=== PATIENT | female | born 1935 | race Caucasian/White ===

== ENCOUNTER → 2016-12-29 | Outpatient (CLI) | payer OTHER, MEDICARE ==
[~2016-12-29] MED LIST: ASPI81TA28 PO; CARV3.12 PO; CYAN100T PO; FERR325T51 PO; FURO-85 PO; HYDR-5688 PO; LEVO100T7 PO; LISI2.5T5 PO; METF500T PO; MULT-506 PO; ONDA4TAB10 SL; OPTIRAY 320 IV PRN; ROSU5TAB PO; SILO8CAP PO; SULF800T23 PO; TRAM-10 PO
--- NOTE | 2016-12-29 13:01 | DIAGNOSTIC IMAGING REPORT ---
CT OF THE CHEST WITH IV CONTRAST CLINICAL HISTORY: Lung adenocarcinoma. COMPARISON STUDY: Chest CT September 29, 2016 and PET/CT June 23, 2016. TECHNIQUE: Following IV administration of 70 mL of Optiray-320, helical axial images of the chest were obtained. Images were viewed in the axial, sagittal and coronal planes. IV contrast was administered without complication. CT DOSE: 160.10 mGycm FINDINGS: There are stable postoperative findings consistent with a left upper lobectomy. No enlarged axillary, mediastinal or hilar lymph nodes are present. The size of the heart is at the upper limits of normal. There is extensive coronary artery calcification. There is mild dilatation of the ascending aorta without dissection. There is extensive plaque of the great vessels. 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 No pericardial effusion is present. There is no pneumothorax or pleural effusion. A 1 cm groundglass nodule within the right lung apex shown on image 49 of 306 is unchanged since prior exam. This is at most minimally increased in size since a CT of December 28, 2013. A few additional smaller groundglass and solid right lung nodules are also unchanged. No new nodules are present. No suspicious osseous lesions are present. Sclerosis within a few left-sided ribs is likely postsurgical. Upper abdomen is unremarkable. There is mild emphysema. IMPRESSION: 1. Stable postoperative findings following left upper lobectomy. No change in appearance of the chest since prior exam September 29, 2016. 2. Stable 1 cm groundglass nodule within the right lung apex. A few additional groundglass and solid right lung nodules are also unchanged. No significant change since earlier study of December 28, 2013. A low-grade neoplasm remains within the differential and these can be assessed on subsequent studies. Electronically signed by: Enrike Romo M.D. 12/29/2016 12:59 PM Dictated Date/Time: 12/29/2016 12:42 PM
== END | disposition home or self-care (01) ==
LOC: C.CTS 12:13
PROVIDERS: ATTEND Internal Medicine Hematology & Oncology
DX: C34.12 Malignant neoplasm of upper lobe, left bronchus or lung (principal)

== ENCOUNTER → 2017-02-15 | Outpatient (CLI) | payer OTHER, MEDICARE ==
[~2017-02-15] MED LIST changes: +ACET-1256 PO; +ASPI325T39 PO; +CRAN1CAP16 PO; +CYAN10005 PO; +FURO20TA PO; +GARL10007 PO; -HYDR-5688 PO; +LOPE1TAB PO; -ONDA4TAB10 SL; -OPTIRAY 320 IV PRN; +[UNRECOGNIZED DRUG - CODE] PO
== END | disposition home or self-care (01) ==
LOC: C.LABSPEC 17:19
PROVIDERS: ATTEND Nurse Practitioner Family
DX: N39.0 Urinary tract infection, site not specified (principal)

== ENCOUNTER 2017-02-24 18:41 | Emergency (ER) | payer OTHER, MEDICARE ==
[~2017-02-24] VITALS: Ht 162.6 cm; Wt 51.0 kg
[~2017-02-24 18:41] MED LIST changes: -ACET-1256 PO; -ASPI325T39 PO; -CRAN1CAP16 PO; -CYAN10005 PO; -FERR325T51 PO; -FURO20TA PO; -GARL10007 PO; -LEVO100T7 PO; -LOPE1TAB PO; -ROSU5TAB PO; -SULF800T23 PO; -TRAM-10 PO; -[UNRECOGNIZED DRUG - CODE] PO
[2017-02-24 18:45] VITALS: BP 111/53; PULSE 89; TEMP 36.7; O2SAT 97; Ht 162.6 cm; Wt 51.0 kg
--- NOTE | 2017-02-24 19:12 | EMERGENCY ROOM VISIT NOTE ---
History Report prepared by Olga: Ritesh Garg Under the Supervision of: Dr. Ghanshyam Burger D.O. First contact with patient: 18:50 Chief Complaint: FALL Stated Complaint: FELL ON L KNEE History of Present Illness The patient is an 81 year old female who presents to the Emergency Room with complaints of a mechanical fall that occurred prior to arrival this evening. She says that she walked out onto her patio and had chairs leaning against a table. The patient then got a chair and slipped and fell. She landed on her right knee on concrete, and has had right knee pain ever since. The patient denies hitting her head or having any loss of consciousness. She says that she did not hear anything crack or break. Source of History: patient Onset: Prior to arrival this evening Position: other (global - mechanical fall) Symptom Intensity: landed on concrete Associated Symptoms: No LOC Note: Associated symptoms: Landed on right knee, has right knee pain ever since. Denies hitting head. Review of Systems See HPI for pertinent positives & negatives. A total of 10 systems reviewed and were otherwise negative. Past Medical & Surgical Medical Problems: (1) Abdominal pain (2) CMT (Zmdvtur-Hfoju-Iwrhb disease) (3) Diabetes (4) Fever (5) Fever (6) HTN (hypertension) (7) Hyponatremia (8) Hypothyroidism (9) Lung mass (10) Sepsis (11) Urosepsis (12) UTI (urinary tract infection) (13) UTI (urinary tract infection) Family History Diabetes mellitus Heart disease Social History Smoking Status: Never Smoker Alcohol Use: none Drug Use: none Marital Status: Housing Status: lives alone Occupation Status: retired Current/Historical Medications Scheduled Aspirin (Aspirin Ec), 81 MG PO QAM Carvedilol (Coreg), 3.125 MG PO BID Cyanocobalamin (Vitamin B-12), Unknown Dose PO QPM Ferrous Sulfate (Iron Supplement), 325 MG PO QPM Furosemide (Lasix), 20 MG PO BID Levothyroxine Sodium (Levothyroxine Sodium), 100 MCG PO QPM Lisinopril (Lisinopril), 2.5 MG PO QPM Metformin Hcl (Glucophage), 500 MG PO BIDM Multivitamin (Multivitamin), 1 TAB PO QAM Rosuvastatin Calcium (Crestor), 5 MG PO QPM Silodosin (Rapaflo), 8 MG PO QPM Sulfa/Trimethoprim (Bactrim Ds 800MG/160MG), 1 TAB PO BID Allergies Coded Allergies: Amoxicillin (Verified Allergy, Severe, hives, 07/27/16) Clavulanic Acid (Verified Allergy, Severe, hives, 07/27/16) Penicillins (Verified Allergy, Unknown, HIVES, 07/27/16) Physical Exam Vital Signs Date Time Temp Pulse Resp B/P Pulse Ox O2 Delivery O2 Flow Rate FiO2 02/24/17 18:45 36.7 89 18 111/53 97 Room Air Physical Exam CONSTITUTIONAL/VITAL SIGNS: Reviewed / noted above. GENERAL: Non-toxic in appearance. INTEGUMENTARY: Warm, dry, and [place]. HEAD: Normocephalic. EYES: without scleral icterus or trauma. ENT/OROPHARYNX: clear and moist. LYMPHADENOPATHY/NECK: Is supple without lymphadenopathy or meningismus. RESPIRATORY: Lungs clear and equal. CARDIOVASCULAR: Regular rate and rhythm. GI/ABDOMEN: Soft and nontender. No organomegaly or pulsatile mass. No rebound or guarding. Normal bowel sounds. EXTREMITIES: No obvious swelling or ecchymosis to right knee. Range of motion intact with minimal discomfort. BACK: No CVA tenderness. NEUROLOGICAL: Intact without focal deficits. GCS of 15. PSYCHIATRIC: normal affect. MUSCULOSKELETAL: Normally developed with good muscle tone. Medical Decision & Procedures ER Provider Diagnostic Interpretation: X ray results and stated below per my interpretation and radiology interpretation. RIGHT KNEE 1 OR 2 VIEWS ROUTINE CLINICAL HISTORY: knee injury Right pain COMPARISON: None. DISCUSSION: Severe degenerative change all major joint compartments. Small joint effusion. Several small loose bodies. Chondrocalcinosis. There is no evidence for soft tissue swelling. IMPRESSION: Severe degenerative change. Chondrocalcinosis. Small joint effusion. No acute bony abnormality. Electronically signed by: Boyd Castañeda M.D. 02/24/2017 7:17 PM Dictated Date/Time: 02/24/2017 7:16 PM Medications Administered Medications (Trade) Dose Ordered Sig/Nahed Route Start Time Stop Time Status Last Admin Dose Admin Tramadol HCl (Ultram Home Pack) 1 homepack UD ONCE PO 02/24/17 19:30 02/24/17 19:31 DC 02/24/17 19:34 1 HOMEPACK Tramadol HCl (Ultram Tab) 100 mg NOW STAT PO 02/24/17 19:24 02/24/17 19:25 DC 02/24/17 19:35 100 MG ED Course 1857: Previous medical records were reviewed. The patient was evaluated in room D9. A complete history and physical examination was performed. 1923: Ordered Ultram Tab 100 mg PO. 1929: Ordered Ultram Home Pack 1 homepack PO. 1930: On reevaluation, the patient is resting comfortably. I discussed the results and findings with the patient. She verbalized agreement of the treatment plan. She will be discharged home. Medical Decision Differential diagnosis: Etiologies such as fracture, dislocation, neurovascular compromise, compartment syndrome, soft tissue injury, as well as others were entertained. Medication Reconciliation: I attest that I have personally reviewed the patient' s current medication list. Blood pressure Screening: Patient was found to have normal blood pressure on screening and does not require follow-up. This is a 81-year-old female who presents to the ED with a chief complaint of right knee pain after a fall. The patient states that she lost her balance and fell onto her right knee. She complains of right medial knee pain. There is no obvious injury on physical exam. She has normal range of motion with minimal discomfort. There is no swelling or effusion. There is no obvious bony deformity or skin damage. The x-ray did not show fracture or dislocation. The patient was told results. She is felt to be stable for discharge. She was given an Ultram here as well as Ultram home pack. Prescription also given. Impression Primary Impression: Knee contusion Scribe Attestation The scribe's documentation has been prepared under my direction and personally reviewed by me in its entirety. I confirm that the note above accurately reflects all work, treatment, procedures, and medical decision making performed by me. Departure Information Dispostion Home / Self-Care Referrals Lily Arellano DO (PCP) Patient Instructions [facility] Additional Instructions Take Tylenol / Motrin as needed for pain. Xray did not show any fractures or breaks. Anticipate improvement in pain over the next week.
--- NOTE | 2017-02-24 19:18 | DIAGNOSTIC IMAGING REPORT ---
RIGHT KNEE 1 OR 2 VIEWS ROUTINE CLINICAL HISTORY: knee injury Right pain COMPARISON: None. DISCUSSION: Severe degenerative change all major joint compartments. Small joint effusion. Several small loose bodies. Chondrocalcinosis. There is no evidence for soft tissue swelling. IMPRESSION: Severe degenerative change. Chondrocalcinosis. Small joint effusion. No acute bony abnormality. Electronically signed by: Boyd Castañeda M.D. 02/24/2017 7:17 PM Dictated Date/Time: 02/24/2017 7:16 PM
[2017-02-24] MEDS ORDERED: TRAMADOL HCL 50 MG TAB PO STA (19:24)
[2017-02-24] MEDS ORDERED: TRAM-10 PO (19:25)
[2017-02-24] MEDS ORDERED: TRAMADOL HCL 50 MG HOME PACK PO ONE (19:30)
[2017-02-24] MEDS ORDERED: SULF800T23 PO (19:32)
[2017-02-24] MEDS ORDERED: FERR325T51 PO (20:03)
[2017-02-24] MEDS ORDERED: ROSU5TAB PO (20:03)
[2017-02-24] MEDS ORDERED: LEVO100T7 PO (21:22)
== END 2017-02-24 19:40 | disposition home or self-care (01) ==
LOC: C.EDB 18:42 → C.EDD 19:40
DX: S80.01XA Contusion of right knee, initial encounter (principal); W01.0XXA Fall on same level from slipping, tripping and stumbling without subsequent striking against object, initial encounter; Y92.018 Other place in single-family (private) house as the place of occurrence of the external cause; E11.9 Type 2 diabetes mellitus without complications; I10 Essential (primary) hypertension; G60.0 Hereditary motor and sensory neuropathy; E87.1 Hypo-osmolality and hyponatremia; E03.9 Hypothyroidism, unspecified; Z83.3 Family history of diabetes mellitus; Z82.49 Family history of ischemic heart disease and other diseases of the circulatory system; Z79.82 Long term (current) use of aspirin; Z79.899 Other long term (current) drug therapy

== ENCOUNTER → 2017-03-30 | Outpatient (CLI) | payer OTHER, MEDICARE ==
[~2017-03-30] MED LIST changes: +FERR325T51 PO; +LEVO100T7 PO; +ROSU5TAB PO; +SULF800T23 PO
[2017-03-30 12:25] LABS: HEMATOCRIT 32.2 % (37-47); MEAN CELL VOLUME 100.3 fL (80-100); MEAN CORPUSCULAR HEMOGLOBIN 31.8 pg (25-34); MEAN CORPUSCULAR HGB CONC 31.7 g/dl (32-36); MEAN PLATELET VOLUME 9.7 fL (7.4-10.4); PLATELET COUNT 303 K/uL (130-400); RED BLOOD COUNT 3.21 M/uL (4.2-5.4); WHITE BLOOD COUNT 7.43 K/uL (4.8-10.8)
[2017-03-30 12:47] LABS: ESTIMATED AVERAGE GLUCOSE 177 mg/dl; HA1C FLAG Normal (Normal)
[2017-03-30 13:09] LABS: ALT/SGPT 20 U/L (12-78); BLOOD UREA NITROGEN 27 mg/dl (7-18); BUN/CREATININE RATIO 22.7 (10-20); CALCIUM 9.8 mg/dl (8.5-10.1); CARBON DIOXIDE 29 mmol/L (21-32); CHLORIDE 100 mmol/L (98-107); CHOLESTEROL 186 mg/dl (0-200); GLUCOSE 188 mg/dl (70-99); POTASSIUM 3.9 mmol/L (3.5-5.1); SODIUM 139 mmol/L (136-145)
[2017-03-30 13:20] LABS: ALB/GLOB RATIO 1.2 (0.9-2); ALKALINE PHOSPHATASE 94 U/L (45-117); AST/SGOT 14 U/L (15-37); CHOLESTEROL/HDL RATIO 3.4; HDL CHOLESTEROL 54 mg/dl; LDL CHOLESTEROL CALCULATED 96 mg/dl; TRIGLYCERIDES 179 mg/dl (0-150); VERY LOW DENSITY LIPOPROT CALC 36 mg/dl
== END | disposition home or self-care (01) ==
LOC: C.LABBFT 08:31
PROVIDERS: ATTEND Family Medicine
DX: E11.8 Type 2 diabetes mellitus with unspecified complications (principal); I10 Essential (primary) hypertension; E78.00 Pure hypercholesterolemia, unspecified; E03.9 Hypothyroidism, unspecified; D64.9 Anemia, unspecified

== ENCOUNTER → 2017-04-01 | Outpatient (CLI) | payer OTHER, MEDICARE ==
[2017-04-01 12:32] LABS: BASO % 0.8 %; BASO ABS # 0.06 K/uL (0-0.2); COMPLETE YES; EOS % 5.9 %; HEMATOCRIT 31.1 % (37-47); IG% 0.4 %; LYMPH % 32.1 %; MEAN CELL VOLUME 100.6 fL (80-100); MEAN CORPUSCULAR HEMOGLOBIN 33.3 pg (25-34); MEAN CORPUSCULAR HGB CONC 33.1 g/dl (32-36); MEAN PLATELET VOLUME 9.8 fL (7.4-10.4); MONO % 9.1 %; NEUT % 51.7 %; PLATELET COUNT 267 K/uL (130-400); RED BLOOD COUNT 3.09 M/uL (4.2-5.4); WHITE BLOOD COUNT 7.17 K/uL (4.8-10.8)
[2017-04-01 12:51] LABS: ALT/SGPT 20 U/L (12-78); BLOOD UREA NITROGEN 33 mg/dl (7-18); CALCIUM 9.8 mg/dl (8.5-10.1); CARBON DIOXIDE 28 mmol/L (21-32); CHLORIDE 98 mmol/L (98-107); GLUCOSE 149 mg/dl (70-99); POTASSIUM 3.8 mmol/L (3.5-5.1); SODIUM 137 mmol/L (136-145)
[2017-04-01 12:54] LABS: ALB/GLOB RATIO 1.4 (0.9-2); ALKALINE PHOSPHATASE 97 U/L (45-117); AST/SGOT 13 U/L (15-37)
== END | disposition home or self-care (01) ==
LOC: C.LABBFT 10:54
PROVIDERS: ATTEND Internal Medicine Hematology & Oncology
DX: C34.12 Malignant neoplasm of upper lobe, left bronchus or lung (principal)

== ENCOUNTER → 2017-07-07 | Outpatient (CLI) | payer OTHER, MEDICARE ==
[~2017-07-07] MED LIST changes: +OPTIRAY 320 IV PRN
[2017-07-07 10:53] LABS: ISTAT CREATININE 1.2 mg/dl (0.6-1.3); ISTAT HEMOGLOBIN 10.9 g/dl (12.0-16.0); ISTAT IONIZED CALCIUM 1.2 mmol/l (1.12-1.32)
--- NOTE | 2017-07-07 11:16 | DIAGNOSTIC IMAGING REPORT ---
CT SCAN OF THE CHEST WITH IV CONTRAST CLINICAL HISTORY: Lung cancer. COMPARISON STUDY: Chest CT scans dated 12/29/2016 and 12/28/2013. PET/CT dated 06/23/2016 TECHNIQUE: Following the IV administration of 93 cc of Optiray 320, CT scan of the thorax was performed from the thoracic inlet to the upper abdomen. Images are reviewed in the axial, sagittal, and coronal planes. IV contrast was administered without complication. CT DOSE: 157.74 mGycm FINDINGS: Thyroid: Atrophic and heterogeneous. Thoracic aorta: There is atherosclerotic calcification of the thoracic aorta. There is mild ectasia of the ascending thoracic aorta which measures up to 3.6 cm in diameter. The remainder of the thoracic aorta is normal in caliber. The arch demonstrates standard 3-vessel anatomy. No dissection is seen. There is least moderate stenosis of the left subclavian artery as seen on axial image #55. Pulmonary vasculature: The pulmonary trunk is normal in caliber. There are no filling defects identified in the central pulmonary vessels to indicate pulmonary embolus. Note that this examination was not protocoled for evaluation of the pulmonary arteries. Heart: The heart is normal in size and without pericardial effusion. There are coronary artery calcifications. A stent is suggested in the LAD. Lungs and pleural spaces: There is mild emphysematous change. There are postoperative changes from left upper lobe resection with associated elevation of the left hemidiaphragm. No airspace consolidation or pleural effusion is identified. There is a new 8 mm nodule in the left upper lung along the resection margin seen on axial image #108. There are at least 15 additional subcentimeter solid and groundglass nodules scattered throughout the left lung. Front Line Supervisor nodules are seen on images #86, #93, #126, and #140. These are new from previous. There are 3 new pulmonary lesions also seen in the right lung. The largest lesion is in the right lower lobe seen on image #191 and measures 6 mm. Smaller lesions are seen in the right lower lobe on image #136 and in the right upper lobe on image #101. Again seen is a 10 mm groundglass lesion in the anterior right upper lobe best seen on axial image #47. This is unchanged from prior studies and the appearance is highly concerning for low-grade neoplasm. The trachea and central airways are clear. Mediastinum: There is no mediastinal lymphadenopathy. Brittani: Clear. Axillae: There is no axillary lymphadenopathy. Upper abdomen: Partially visualized upper abdominal viscera is within normal limits. Skeletal structures: The skeletal structures are osteopenic. Degenerative change is noted throughout the thoracic spine. Advanced arthritic change is observed in the shoulders with surrounding bursal fluid. No lytic or blastic bony lesions are seen. Mild compression deformities are seen in T6 and T9. Soft tissues: The patient is cachectic. IMPRESSION: 1. Mild emphysema and postoperative change from left upper lobe resection. 2. There is evidence of multifocal metastatic disease throughout both lungs as detailed above. 3. There is no mediastinal or hilar adenopathy. 4. No airspace consolidation or pleural effusion is identified. 5. A 10 mm groundglass lesion in the right apex is unchanged. This remains concerning for low-grade neoplasm. Electronically signed by: Nathan Oneal M.D. 07/07/2017 11:14 AM Dictated Date/Time: 07/07/2017 10:55 AM
== END | disposition home or self-care (01) ==
LOC: C.CTS 10:04
PROVIDERS: ATTEND Internal Medicine Hematology & Oncology
DX: C34.12 Malignant neoplasm of upper lobe, left bronchus or lung (principal); J43.9 Emphysema, unspecified; R91.8 Other nonspecific abnormal finding of lung field; Z90.2 Acquired absence of lung [part of]

== ENCOUNTER → 2017-07-20 | Outpatient (CLI) | payer OTHER, MEDICARE ==
[~2017-07-20] MED LIST changes: -OPTIRAY 320 IV PRN
[2017-07-20 17:42] LABS: BLOOD UREA NITROGEN 35 mg/dl (7-18); CREATININE 1.13 mg/dl (0.60-1.20)
== END | disposition home or self-care (01) ==
LOC: C.LABBFT 12:39
PROVIDERS: ATTEND Internal Medicine Hematology & Oncology
DX: C34.12 Malignant neoplasm of upper lobe, left bronchus or lung (principal)

== ENCOUNTER → 2017-07-22 | Outpatient (CLI) | payer OTHER, MEDICARE ==
[~2017-07-22] MED LIST changes: +GADAVIST IV PRN
--- NOTE | 2017-07-22 10:35 | DIAGNOSTIC IMAGING REPORT ---
MRI OF THE BRAIN COMBO CLINICAL HISTORY: Lung cancer. COMPARISON STUDY: MRI of the brain dated 06/10/2016. TECHNIQUE: MRI of the brain was performed utilizing various T1 and T2-weighted sequences in the axial, sagittal, and coronal planes. Contrast-enhanced sequences were acquired following the administration of 4.5 cc of Gadavist. FINDINGS: Brain parenchyma: There are age-related involutional changes noting moderate subcortical and periventricular microangiopathic disease. Chronic lacunar infarcts are present within both cerebellar hemispheres and the right caudate head. There is no hemorrhage or mass effect. There is no restricted diffusion to suggest acute ischemia. No enhancing mass lesion is identified on the postcontrast images. Courtney-white matter differentiation is preserved. No extra-axial fluid collection is seen. The cerebellar tonsils are normal in configuration. Ventricles, sulci, and cisterns: Prominent secondary to involutional change. Pituitary and sella: Unremarkable. Intracranial vasculature: Normal flow voids are maintained at the skull base. Orbits: The bony orbits are grossly intact. Orbital contents are normal in appearance noting bilateral ocular lens implants. Sinuses and mastoids: Clear. Calvarium: Unremarkable. Cervical cord: Partially visualized cervical spinal cord is normal in morphology and signal intensity. IMPRESSION: 1. Senescent changes as above with no acute intracranial abnormality. 2. There is no evidence of intracranial metastatic disease. Electronically signed by: Nathan Oneal M.D. 07/22/2017 10:33 AM Dictated Date/Time: 07/22/2017 10:29 AM
== END | disposition home or self-care (01) ==
LOC: C.MRI 09:29
PROVIDERS: ATTEND Internal Medicine Hematology & Oncology
DX: C34.12 Malignant neoplasm of upper lobe, left bronchus or lung (principal); R54 Age-related physical debility

== ENCOUNTER → 2017-08-17 | Outpatient (CLI) | payer OTHER, MEDICARE ==
[~2017-08-17] MED LIST changes: -GADAVIST IV PRN
[2017-08-17 12:18] LABS: BASO ABS # 0.07 K/uL (0-0.2); COMPLETE YES; EOS % 5.5 %; HEMATOCRIT 31.9 % (37-47); IG% 0.4 %; LYMPH % 28.9 %; LYMPH ABS # 2.09 K/uL (1.2-3.4); MEAN CELL VOLUME 101.6 fL (80-100); MEAN CORPUSCULAR HEMOGLOBIN 34.1 pg (25-34); MEAN CORPUSCULAR HGB CONC 33.5 g/dl (32-36); MEAN PLATELET VOLUME 10.3 fL (7.4-10.4); MONO % 8.7 %; NEUT % 55.5 %; PLATELET COUNT 258 K/uL (130-400); RED BLOOD COUNT 3.14 M/uL (4.2-5.4); WHITE BLOOD COUNT 7.23 K/uL (4.8-10.8)
== END | disposition home or self-care (01) ==
LOC: C.LABBFT 09:53
PROVIDERS: ATTEND Internal Medicine Hematology & Oncology
DX: C34.12 Malignant neoplasm of upper lobe, left bronchus or lung (principal)

== ENCOUNTER 2017-08-28 19:50 | Inpatient (IN) | payer OTHER, MEDICARE ==
[~2017-08-28] VITALS: Ht 162.6 cm; Wt 48.2 kg
[2017-08-28] MEDS ORDERED: SODIUM CHLORIDE 0.9% 1000ML 1,000 ML IV STA (20:17)
--- NOTE | 2017-08-28 20:26 | EMERGENCY ROOM VISIT NOTE ---
History Report prepared by Olga: Talha Canales Under the Supervision of: Dr. Reagan Patton M.D. First contact with patient: 20:05 Chief Complaint: ABDOMINAL PAIN Stated Complaint: SEVERE PAIN LOWER R SIDE,VOMITING,WEAKNESS History of Present Illness The patient is a 82 year old female who presents to the Emergency Room with complaints of intermittent right lower quadrant abdominal pain that started yesterday. She rates her pain as an 8/10 in severity. The patient is accompanied by her daughter who states that the patient has been taking Tarceva for lung cancer for a month. She states that the patient has been experiencing diarrhea, including an episode three days ago, yesterday, and today.The patient states that she is also experiencing a headache that radiates into the back of her neck. Her daughter states that the patient has been weak and has not been able to walk. She admits that the patient has been nauseous and vomited a clear liquid today. The patient states that she also had a temperature of 99 today. She states that she recently had a brain scan four days ago, which was clear. The patient denies a history of Clostridium Difficile. She denies melena, hematochezia, urinary symptoms, trauma or injury, chest pain, and shortness of breath. Source of History: patient, family Onset: yesterday Position: abdomen (RLQ) Symptom Intensity: 8/10 Timing: intermittent Associated Symptoms: + headache, + nausea, + vomiting, + diarrhea, + weakness, No chest pain, No SOB, No melena, No hematochezia, No urinary symptoms Review of Systems See HPI for pertinent positives & negatives. A total of 10 systems reviewed and were otherwise negative. Past Medical & Surgical Medical Problems: (1) Abdominal pain (2) Abdominal pain (3) CMT (Xbcofzj-Razph-Igkso disease) (4) Diabetes (5) Fever (6) Fever (7) HTN (hypertension) (8) Hyponatremia (9) Hypothyroidism (10) Lung mass (11) Nausea & vomiting (12) Sepsis (13) Urosepsis (14) UTI (urinary tract infection) (15) UTI (urinary tract infection) Old medical records were reviewed. Nurse's notes were reviewed and I agree with. Family History Diabetes mellitus Heart disease Social History Smoking Status: Former Smoker Alcohol Use: none Drug Use: none Marital Status: Housing Status: lives alone Occupation Status: retired Current/Historical Medications Scheduled Aspirin (Aspirin Ec), 325 MG PO DAILY Carvedilol (Coreg), 3.125 MG PO BID Cranberry (Vaccinium Macrocarp (Cranberry), 1 CAP PO DAILY Cyanocobalamin (Vitamin B-12), 1,000 MCG PO DAILY Erlotinib (Tarceva), 150 MG PO DAILY Furosemide (Lasix), 20 MG PO BID17 Garlic (Garlic), 1 CAP PO DAILY Levothyroxine Sodium (Levothyroxine Sodium), 100 MCG PO QPM Lisinopril (Lisinopril), 2.5 MG PO QPM Metformin Hcl (Glucophage), 1,000 MG PO BIDM Multivitamin (Multivitamin), 1 TAB PO QAM Silodosin (Rapaflo), 8 MG PO QPM Scheduled PRN Acetaminophen (Tylenol), 1,000 MG PO UD PRN for Pain Loperamide-Simethicone (Imodium Multi-Symptom Rel), 1 TAB PO UD PRN for GI Upset Allergies Coded Allergies: Amoxicillin (Verified Allergy, Severe, hives, 08/28/17) Clavulanic Acid (Verified Allergy, Severe, hives, 08/28/17) Penicillins (Verified Allergy, Unknown, HIVES, 08/28/17) Methimazole (Unverified Adverse Reaction, Unknown, SEVERE NAUSEA, 08/28/17 ) Tramadol (Unverified Adverse Reaction, Unknown, NAUSEA, 08/28/17) Physical Exam Vital Signs Date Time Temp Pulse Resp B/P (MAP) Pulse Ox O2 Delivery O2 Flow Rate FiO2 08/28/17 22:38 88 18 98/56 98 Room Air 08/28/17 21:43 85 18 104/88 98 Room Air 08/28/17 20:25 100 08/28/17 20:12 98 Room Air 08/28/17 19:59 37.5 99 18 125/59 98 Room Air Physical Exam General: Chronically-ill, somewhat cachectic appearing older female complaining of abdominal pain and diarrhea. HEENT: Normal cephalic atraumatic. Pupils are equal round and reactive to light. Extraocular movements are intact. Oropharynx is pink with moist mucous membranes. No swelling of the mouth lips or tongue. Neck: Supple with a midline trachea. No meningeal signs or stiffness, no JVD or bruits. No Stridor. Chest: Clear to auscultation bilaterally. No wheezes or rhonchi. No increased work of breathing. Heart: regular rate and rhythm. Abdomen: Soft nontender, mildly distended without rebound guarding or rigidity. Extremities: No cyanosis clubbing or edema. No calf tenderness or assymetry Spine/Back. Non tender to palpation. No CVA tenderness Skin: Good turgor without rashes. Neurologic exam: Cranial nerves two through 12 are intact. Motor and sensation are intact and symmetrical throughout. Medical Decision & Procedures ER Provider Diagnostic Interpretation: CT results as stated below per my review and radiologist interpretation: ABDOMEN AND PELVIS CT WITHOUT CONTRAST CT DOSE: 251.98 mGy.cm HISTORY: Right-sided abdominal pain. eval for colitis TECHNIQUE: Multiaxial CT images of the abdomen and pelvis were performed without contrast. A dose lowering technique was utilized adhering to the principles of ALARA. COMPARISON STUDY: Abdomen and pelvis CT 09/29/2016. Chest CT 07/07/2017. FINDINGS: Stable mild elevation of the left hemidiaphragm. Stable 6 mm groundglass nodule within the right lower lobe. No pneumoperitoneum. No pneumatosis. No suspicious lytic or blastic osseous lesions. The unenhanced liver, gallbladder, spleen, adrenal glands, pancreas, and left kidney are unremarkable. No renal stones or hydronephrosis. Stable punctate calcification within the upper pole of the right kidney. Calcified plaque within the normal caliber abdominal aorta. No retroperitoneal lymphadenopathy. Bladder remains mildly distended. The uterus appears surgically absent. Suboptimal evaluation for bowel pathology due to the lack of intravenous and oral contrast. However, there is no definite bowel wall thickening or obstruction. Mildly distended fluid-filled loops of large and small bowel are seen throughout the abdomen. Normal appendix. IMPRESSION: 1. Suboptimal evaluation for bowel pathology due to the lack of intravenous and oral contrast. However, there is no definite bowel wall thickening or obstruction. 2. Mildly distended fluid-filled loops of large and small bowel seen throughout the abdomen. This could be due to an ileus or gastroenteritis. 3. Normal appendix. 4. Stable 6 mm groundglass nodule within the right lower lobe. 5. Chronic elevation of the left hemidiaphragm. This is likely postoperative. Electronically signed by: Hal Small M.D. 08/28/2017 9:05 PM Dictated Date/Time: 08/28/2017 8:55 PM Laboratory Results 08/28/17 20:25 Red Blood Count 3.16, Mean Corpuscular Volume 97.2, Mean Corpuscular Hemoglobin 33.5, Mean Corpuscular Hemoglobin Concent 34.5, Mean Platelet Volume 9.4, Neutrophils (%) (Auto) 76.5, Lymphocytes (%) (Auto) 10.8, Monocytes (%) (Auto) 5.5, Eosinophils (%) (Auto) 7.0, Basophils (%) (Auto) 0.1, Neutrophils # (Auto) 5.37, Lymphocytes # (Auto) 0.76, Monocytes # (Auto) 0.39, Eosinophils # (Auto) 0.49, Basophils # (Auto) 0.01 08/28/17 20:25 Test 08/28/17 20:25 White Blood Count 7.03 K/uL (4.8-10.8) Red Blood Count 3.16 M/uL (4.2-5.4) Hemoglobin 10.6 g/dL (12.0-16.0) Hematocrit 30.7 % (37-47) Mean Corpuscular Volume 97.2 fL (80-100) Mean Corpuscular Hemoglobin 33.5 pg (25-34) Mean Corpuscular Hemoglobin Concent 34.5 g/dl (32-36) Platelet Count 251 K/uL (130-400) Mean Platelet Volume 9.4 fL (7.4-10.4) Neutrophils (%) (Auto) 76.5 % Lymphocytes (%) (Auto) 10.8 % Monocytes (%) (Auto) 5.5 % Eosinophils (%) (Auto) 7.0 % Basophils (%) (Auto) 0.1 % Neutrophils # (Auto) 5.37 K/uL (1.4-6.5) Lymphocytes # (Auto) 0.76 K/uL (1.2-3.4) Monocytes # (Auto) 0.39 K/uL (0.11-0.59) Eosinophils # (Auto) 0.49 K/uL (0-0.5) Basophils # (Auto) 0.01 K/uL (0-0.2) RDW Standard Deviation 50.5 fL (36.4-46.3) RDW Coefficient of Variation 14.1 % (11.5-14.5) Immature Granulocyte % (Auto) 0.1 % Immature Granulocyte # (Auto) 0.01 K/uL (0.00-0.02) Anion Gap 13.0 mmol/L (3-11) Est Creatinine Clear Calc Drug Dose 22.0 ml/min Estimated GFR () 36.9 Estimated GFR (Non- 31.9 BUN/Creatinine Ratio 28.6 (10-20) Calcium Level 8.9 mg/dl (8.5-10.1) Total Bilirubin 0.5 mg/dl (0.2-1) Direct Bilirubin 0.1 mg/dl (0-0.2) Aspartate Amino Transf (AST/SGOT) 26 U/L (15-37) Alanine Aminotransferase (ALT/SGPT) 42 U/L (12-78) Alkaline Phosphatase 94 U/L (45-117) Total Protein 6.4 gm/dl (6.4-8.2) Albumin 2.9 gm/dl (3.4-5.0) Lipase 361 U/L (73-393) Laboratory studies as stated above per my review. Medications Administered Medications (Trade) Dose Ordered Sig/Nahed Route Start Time Stop Time Status Last Admin Dose Admin Sodium Chloride 1,000 ml @ 999 mls/hr Q1H1M STAT IV 08/28/17 20:17 08/28/17 21:17 DC 08/28/17 20:24 999 MLS/HR Ondansetron HCl (Zofran Inj) 4 mg NOW STAT IV 08/28/17 21:43 08/28/17 21:44 DC 08/28/17 21:47 4 MG Morphine Sulfate (MoRPHine SULFATE INJ) 2 mg NOW STAT IV 08/28/17 21:43 08/28/17 21:44 DC 08/28/17 21:48 2 MG Acetaminophen (Tylenol Tab) 650 mg Q4H PRN PO 08/28/17 22:45 09/27/17 22:44 08/29/17 00:38 650 MG ED Course 2006: Past medical records reviewed. The patient was evaluated in room C06, and a complete history and physical examination were performed. 2016: Ordered Sodium Chloride 1000 ml @ 999 mls/hr IV. 2139: I reevaluated the patient and she requested something for pain and nausea. 2142: Ordered Morphine Sulfate 2 mg IV, Zofran Injection 4 mg IV. 2233: I discussed the patient's case with Dr. Patel [facility] Hospitalist. He understands the patient's condition and agrees to accept the patient. The patient will be further evaluated. Medical Decision Differentials include, but are not limited to; dehydration, clostridium difficile, infection, cancer complication, electrolyte or metabolic abnormality. This patient comes in as described above. She's had diarrhea . She is on chemotherapy and has had multiple episodes of diarrhea. She feels weak and tired and has abdominal pain . She had low a low-grade temperature as well. IV access was established and she was hydrated with IV normal saline . She was also given more IV morphine and IV Zofran for pain and nausea management. Her BUN and creatinine are elevated compared to baseline . I do think she is clinically dehydrated. I did a noncontrast CAT scan and she may have more of an ileus type picture but no obstruction or any acute surgical process. I do think she needs to be admitted for observation and hydration and further treatment and evaluation. Dr. Patel did see her in the emergency department. Medication Reconcilliation Current Medication List: was personally reviewed by me Blood Pressure Screening Patient's blood pressure: Normal blood pressure Consults Time Called: 2233 Consulting Physician: Dr. Patel [facility] Hospitalist Returned Call: 2233 I discussed the patient's case with Dr. Patel, [facility] Hospitalist. He understands the patient's condition and agrees to accept the patient. The patient will be further evaluated. Impression Primary Impression: Dehydration Additional Impressions: Lung cancer Diarrhea Abdominal pain Scribe Attestation The scribe's documentation has been prepared under my direction and personally reviewed by me in its entirety. I confirm that the note above accurately reflects all work, treatment, procedures, and medical decision making performed by me. Departure Information Dispostion Being Evaluated By Hospitalist Referrals Ayo Ho MD (PCP) Patient Instructions [facility] Problem Qualifiers
[2017-08-28 20:37] LABS: BASO % 0.1 %; BASO ABS # 0.01 K/uL (0-0.2); COMPLETE YES; HEMATOCRIT 30.7 % (37-47); IG% 0.1 %; LYMPH % 10.8 %; LYMPH ABS # 0.76 K/uL (1.2-3.4); MEAN CELL VOLUME 97.2 fL (80-100); MEAN CORPUSCULAR HEMOGLOBIN 33.5 pg (25-34); MEAN CORPUSCULAR HGB CONC 34.5 g/dl (32-36); MEAN PLATELET VOLUME 9.4 fL (7.4-10.4); MONO % 5.5 %; NEUT % 76.5 %; PLATELET COUNT 251 K/uL (130-400); RED BLOOD COUNT 3.16 M/uL (4.2-5.4); WHITE BLOOD COUNT 7.03 K/uL (4.8-10.8)
[2017-08-28] MEDS ORDERED: [UNRECOGNIZED DRUG - CODE] PO (20:43)
[2017-08-28] MEDS ORDERED: ASPI325T39 PO (20:44)
[2017-08-28] MEDS ORDERED: ACET-1256 PO (20:45)
[2017-08-28] MEDS ORDERED: GARL10007 PO (20:45)
[2017-08-28] MEDS ORDERED: CRAN1CAP16 PO (20:45)
[2017-08-28] MEDS ORDERED: CYAN10005 PO (20:45)
[2017-08-28] MEDS ORDERED: LOPE1TAB PO (20:47)
[2017-08-28 21:04] LABS: BUN/CREATININE RATIO 28.6 (10-20); CALCIUM 8.9 mg/dl (8.5-10.1)
--- NOTE | 2017-08-28 21:06 | DIAGNOSTIC IMAGING REPORT ---
ABDOMEN AND PELVIS CT WITHOUT CONTRAST CT DOSE: 251.98 mGy.cm HISTORY: Right-sided abdominal pain. eval for colitis TECHNIQUE: Multiaxial CT images of the abdomen and pelvis were performed without contrast. A dose lowering technique was utilized adhering to the principles of ALARA. COMPARISON STUDY: Abdomen and pelvis CT 09/29/2016. Chest CT 07/07/2017. FINDINGS: Stable mild elevation of the left hemidiaphragm. Stable 6 mm groundglass nodule within the right lower lobe. No pneumoperitoneum. No pneumatosis. No suspicious lytic or blastic osseous lesions. The unenhanced liver, gallbladder, spleen, adrenal glands, pancreas, and left kidney are unremarkable. No renal stones or hydronephrosis. Stable punctate calcification within the upper pole of the right kidney. Calcified plaque within the normal caliber abdominal aorta. No retroperitoneal lymphadenopathy. Bladder remains mildly distended. The uterus appears surgically absent. Suboptimal evaluation for bowel pathology due to the lack of intravenous and oral contrast. However, there is no definite bowel wall thickening or obstruction. Mildly distended fluid-filled loops of large and small bowel are seen throughout the abdomen. Normal appendix. IMPRESSION: 1. Suboptimal evaluation for bowel pathology due to the lack of intravenous and oral contrast. However, there is no definite bowel wall thickening or obstruction. 2. Mildly distended fluid-filled loops of large and small bowel seen throughout the abdomen. This could be due to an ileus or gastroenteritis. 3. Normal appendix. 4. Stable 6 mm groundglass nodule within the right lower lobe. 5. Chronic elevation of the left hemidiaphragm. This is likely postoperative. Electronically signed by: Hal Small M.D. 08/28/2017 9:05 PM Dictated Date/Time: 08/28/2017 8:55 PM
[2017-08-28 21:08] LABS: POTASSIUM 3.7 mmol/L (3.5-5.1)
[2017-08-28 21:25] LABS: CREATININE 1.51 mg/dl (0.60-1.20)
[2017-08-28] MEDS ORDERED: MoRPHine SULFATE 2 MG/ML CARP IV STA (21:43)
[2017-08-28] MEDS ORDERED: ONDANSETRON INJ 2 MG/ML 2 ML VIAL IV STA (21:43)
--- NOTE | 2017-08-28 22:44 | History and Physical ---
History & Physical Date & Time of Service: Aug 28, 2017 at 22:29 Chief Complaint: Severe Pain Lower R Side,Vomiting,Weakness Primary Care Physician: Ayo Ho MD History of Present Illness Source: patient 82 y/o F Hx CHF, CAD, CMT, DM, HTN, hypothyroidism, chronic anemia, Lung CA - recently on Tarceva. Pt has had progressive weakness, RLQ abdominal pain, diarrhea, nausea and a few episodes of vomiting over the last 3 days. She denies hematochezia, fevers or rigors. Initial labs reveal EJ, hyponatremia and anemia which is chronic. A CT abdomen may be consistent with ileus or enteritis but did not reveal any bowel wall thickening or evidence of obstruction. Past Medical/Surgical History PMH: 1. CMT (Fhjyhzj-Xgoyg-Mklcd disease) - dx in the last 10-15 years 2. Chronic systolic CHF, EF 30-35% 3. DM II 4. HTN 5. Left lung adenocarcinoma was diagnosed in 2016 - initially treated with Lobectomy. B/L recurrence was daignosed approximately one year following and she was placed directly on Tarceva. 6. CAD s/p bare metal stent - placed at [facility] 7. Hypothyroidism 8. Hyperlipidemia 9. Polio as a child 10. Chronic anemia - Hb 10-11 Surgical: 1. Hysterectomy 2. Carpal tunnel release 3. B/L cataract extraction 4. GILLIAN lung lobectomy Family History Diabetes mellitus Heart disease 1 daughter, 2 sons with Zafxmhk-Opgxw-Mcnyh Disease Mother, father - T2DM Mother - heart disease Father - Qekaydt-Zfwkp-Klgzl Social History Smoking Status: Former Smoker Drug Use: none Marital Status: Housing status: lives alone Occupational Status: retired Immunizations History of Influenza Vaccine: Yes Influenza Vaccine Date: Aug 13, 2013 History of Tetanus Vaccine?: Unknown History of Pneumococcal: Yes Pneumococcal Date: Aug 13, 2012 History of Hepatitis B Vaccine: No Allergies Coded Allergies: Amoxicillin (Verified Allergy, Severe, hives, 08/28/17) Clavulanic Acid (Verified Allergy, Severe, hives, 08/28/17) Penicillins (Verified Allergy, Unknown, HIVES, 08/28/17) Methimazole (Unverified Adverse Reaction, Unknown, SEVERE NAUSEA, 08/28/17 ) Tramadol (Unverified Adverse Reaction, Unknown, NAUSEA, 08/28/17) Home Medications Scheduled Aspirin (Aspirin Ec), 325 MG PO DAILY Carvedilol (Coreg), 3.125 MG PO BID Cranberry (Vaccinium Macrocarp (Cranberry), 1 CAP PO DAILY Cyanocobalamin (Vitamin B-12), 1,000 MCG PO DAILY Erlotinib (Tarceva), 150 MG PO DAILY Furosemide (Lasix), 20 MG PO BID17 Garlic (Garlic), 1 CAP PO DAILY Levothyroxine Sodium (Levothyroxine Sodium), 100 MCG PO QPM Lisinopril (Lisinopril), 2.5 MG PO QPM Metformin Hcl (Glucophage), 1,000 MG PO BIDM Multivitamin (Multivitamin), 1 TAB PO QAM Silodosin (Rapaflo), 8 MG PO QPM Scheduled PRN Acetaminophen (Tylenol), 1,000 MG PO UD PRN for Pain Loperamide-Simethicone (Imodium Multi-Symptom Rel), 1 TAB PO UD PRN for GI Upset Review of Systems Constitutional: + weakness, No fever, No chills, No sweats Eyes: No worsening of vision ENT: No hearing loss, No unusual epistaxis, No nasal symptoms Respiratory: No cough, No sputum, No wheezing Cardiovascular: No chest pain, No orthopnea, No PND Abdomen: + pain, + nausea, + vomiting, + diarrhea Musculoskeletal: No joint pain Genitourinary - Female: No dysuria, No urinary frequency, No urinary urgency Neurologic: + weakness, No memory loss Psychiatric: No depression symptoms Endocrine: + fatigue Hematologic / Lymphatic: No abnormal bleeding/bruising Integumentary: No rash Allergic / Immunologic: No environmental allergies Physical Exam Vital Signs Date Time Temp Pulse Resp B/P (MAP) Pulse Ox O2 Delivery O2 Flow Rate FiO2 08/28/17 21:43 85 18 104/88 98 Room Air 08/28/17 20:25 100 08/28/17 20:12 98 Room Air 08/28/17 19:59 37.5 99 18 125/59 98 Room Air General Appearance: WD/WN, no apparent distress Head: normocephalic Eyes: normal inspection ENT: normal ENT inspection, pharynx normal Neck: supple, no JVD Respiratory/Chest: chest non-tender, lungs clear, normal breath sounds Cardiovascular: regular rate, rhythm, no edema Abdomen/GI: normal bowel sounds, + tenderness (Mild diffuse tenderness - no distention, guarding or rebound) Back: normal inspection, no CVA tenderness, no muscle spasm, normal range of motion Extremities/Musculoskelatal: normal inspection, no calf tenderness, normal capillary refill Neurologic/Psych: cloth mercerizer back tender II-XII nml as tested, no motor/sensory deficits, alert Skin: normal color, warm/dry Diagnostics Laboratory Results Results Past 24 Hours Test 08/28/17 20:25 Range/Units White Blood Count 7.03 4.8-10.8 K/uL Red Blood Count 3.16 4.2-5.4 M/uL Hemoglobin 10.6 12.0-16.0 g/dL Hematocrit 30.7 37-47 % Mean Corpuscular Volume 97.2 80-100 fL Mean Corpuscular Hemoglobin 33.5 25-34 pg Mean Corpuscular Hemoglobin Concent 34.5 32-36 g/dl Platelet Count 251 130-400 K/uL Mean Platelet Volume 9.4 7.4-10.4 fL Neutrophils (%) (Auto) 76.5 % Lymphocytes (%) (Auto) 10.8 % Monocytes (%) (Auto) 5.5 % Eosinophils (%) (Auto) 7.0 % Basophils (%) (Auto) 0.1 % Neutrophils # (Auto) 5.37 1.4-6.5 K/uL Lymphocytes # (Auto) 0.76 1.2-3.4 K/uL Monocytes # (Auto) 0.39 0.11-0.59 K/uL Eosinophils # (Auto) 0.49 0-0.5 K/uL Basophils # (Auto) 0.01 0-0.2 K/uL RDW Standard Deviation 50.5 36.4-46.3 fL RDW Coefficient of Variation 14.1 11.5-14.5 % Immature Granulocyte % (Auto) 0.1 % Immature Granulocyte # (Auto) 0.01 0.00-0.02 K/uL Sodium Level 129 136-145 mmol/L Potassium Level 3.7 3.5-5.1 mmol/L Chloride Level 93 98-107 mmol/L Carbon Dioxide Level 23 21-32 mmol/L Anion Gap 13.0 3-11 mmol/L Blood Urea Nitrogen 43 7-18 mg/dl Creatinine 1.51 0.60-1.20 mg/dl Est Creatinine Clear Calc Drug Dose 22.0 ml/min Estimated GFR () 36.9 Estimated GFR (Non- 31.9 BUN/Creatinine Ratio 28.6 10-20 Random Glucose 185 70-99 mg/dl Calcium Level 8.9 8.5-10.1 mg/dl Total Bilirubin 0.5 0.2-1 mg/dl Direct Bilirubin 0.1 0-0.2 mg/dl Aspartate Amino Transf (AST/SGOT) 26 15-37 U/L Alanine Aminotransferase (ALT/SGPT) 42 12-78 U/L Alkaline Phosphatase 94 45-117 U/L Total Protein 6.4 6.4-8.2 gm/dl Albumin 2.9 3.4-5.0 gm/dl Lipase 361 73-393 U/L Diagnostic Radiology CT abdomen: 1. Suboptimal evaluation for bowel pathology due to the lack of intravenous and oral contrast. However, there is no definite bowel wall thickening or obstruction. 2. Mildly distended fluid-filled loops of large and small bowel seen throughout the abdomen. This could be due to an ileus or gastroenteritis. 3. Normal appendix. 4. Stable 6 mm groundglass nodule within the right lower lobe. 5. Chronic elevation of the left hemidiaphragm. This is likely postoperative. Impression Assessment and Plan 82 y/o F Hx CHF, CAD, CMT, DM, HTN, hypothyroidism, chronic anemia, Lung CA - recently on Tarceva. Pt has had progressive weakness, RLQ abdominal pain, diarrhea, nausea and a few episodes of vomiting over the last 3 days. She denies hematochezia, fevers or rigors. Initial labs reveal EJ, hyponatremia and anemia which is chronic. A CT abdomen may be consistent with ileus or enteritis but did not reveal any bowel wall thickening or evidence of obstruction. 1) Abdominal pain, diarrhea, nausea, vomiting - may be enteritis or effect of Tarceva. We will check stool cultures and C diff toxin, although she matty recent antibiotic use. Antibiotics will be considered with worsening symptoms or fevers. 2) EJ - due to dehydration - IVF provided overnight - recheck BMP AM - Lasix and ANDRE held pending repeat. 3) CHronic systolic CHF - Monitor volume status - cont B karissa - Lasix PRN for time being due to dehydration and EJ - Lisinopril held 4) CAD - Cont ASA, Carvedilol - no evidence of ACS presently 5) Anemia - Hb is at baseline 6) Hypothyroidism 7) DM - placed on SS - Metformin held 8) Lung CA - cont Tarceva fro now as she has tolerated this well for the past month - may need to hold if it determined that this is the cause of her GI issues - would consider an onc consult if discontinuation is considered Level of Care Med/Surg Resuscitation Status FULL RESUSCITATION VTE Prophylaxis Given or contraindicated: Unfractionated heparin SQ
[2017-08-28] MEDS ORDERED: ONDANSETRON INJ 2 MG/ML 2 ML VIAL IV PRN (22:45)
[2017-08-28] MEDS ORDERED: GLUCAGON FOR INJ 1 MG VIAL SQ PRN (23:45)
[2017-08-28] MEDS ORDERED: DEXTROSE 50% 50 ML SYR IV PRN (23:45)
[2017-08-28] MEDS ORDERED: GLUCOSE 10 TABS/TUBE PO PRN (23:45)
[2017-08-28] MEDS ORDERED: GLUCOSE 40% GEL 15 GM TUBE PO PRN (23:45)
[2017-08-29] VITALS (8 sets, daily range): BP systolic 92–104; BP diastolic 56–64; PULSE 74–109; TEMP 36.3–36.8; O2SAT 90–99; Ht 162.6 cm; Wt 48.2 kg
[2017-08-29] MEDS ORDERED: INSULIN ASPART 100 UNITS/ML 3 ML PEN SC SCH (00:15)
[2017-08-29] MEDS ORDERED: NSS + 20MEQ KCL 1000ML 1,000 ML IV SCH (00:30)
[2017-08-29] MEDS: ACETAMINOPHEN 325 MG TAB PO PRN (00:38)
[2017-08-29] MEDS: RAPAFLO~ORDER AWAITING ACTION SCH ×3 (00:43→16:00)
[2017-08-29] MEDS ORDERED: INFLUENZA ADMINISTRATION CHARGE ONE (05:15)
[2017-08-29] MEDS ORDERED: INFLUENZA VIRUS QUAD VACCINE 0.5 ML SYR IM. ONE (05:15)
[2017-08-29 05:38] LABS: HEMATOCRIT 24.5 % (37-47); MEAN CELL VOLUME 97.6 fL (80-100); MEAN CORPUSCULAR HEMOGLOBIN 33.9 pg (25-34); MEAN CORPUSCULAR HGB CONC 34.7 g/dl (32-36); MEAN PLATELET VOLUME 8.8 fL (7.4-10.4); PLATELET COUNT 213 K/uL (130-400); RED BLOOD COUNT 2.51 M/uL (4.2-5.4); WHITE BLOOD COUNT 4.21 K/uL (4.8-10.8)
[2017-08-29 06:07] LABS: BUN/CREATININE RATIO 27.8 (10-20); CALCIUM 7.8 mg/dl (8.5-10.1); CREATININE 1.31 mg/dl (0.60-1.20); MAGNESIUM 1.3 mg/dl (1.8-2.4); PHOSPHORUS 2.6 mg/dl (2.5-4.9); POTASSIUM 3.5 mmol/L (3.5-5.1)
[2017-08-29] MEDS: INSULIN ASPART 100 UNITS/ML 3 ML PEN SC SCH ×3 (06:38→18:34)
[2017-08-29] MEDS: ASPIRIN 325 MG ECTAB PO SCH (07:59)
[2017-08-29] MEDS: CARVEDILOL 3.125 MG TAB PO SCH ×2 (08:00→20:56)
[2017-08-29] MEDS: MAGNESIUM SULFATE 1GM / D5W 1 GM in PREMIXED IN D5W 100 ML IV SCH ×2 (09:25→10:47)
--- NOTE | 2017-08-29 12:46 | Hospitalist Progress Note ---
Hospitalist Progress Note Date of Service Aug 29, 2017. (Batool Manzo ., PA-C) Subjective Pt evaluation today including: conversation w/ patient, physical exam, lab review, review of studies, review of inpatient medication list Voiding: no voiding problems Patient lying in bed. Improvement in symptoms since admission. Weakness seems to be improving. Diarrhea seems to improving. Likely due to chemo medication- Dr. Ho aware. Wants patient to continue medication. Admits she has not been eating/drinking much due to having diarrhea to try and avoid going to the bathroom Abdominal pain/bloating resolved Patient denies any fever, chills, sweats, lightheadedness, dizziness, vision changes, CP, palpitations, edema, SOB, wheezing, cough, abdominal pain, nausea, vomiting, urinary symptoms, melena, numbness/tingling, muscle/joint pain, anxiety/depression, active bleeding, or new skin discoloration/changes. (Batool Manzo ., PA-C) Medications Current Inpatient Medications Medications (Trade) Dose Ordered Sig/Nahed Route Start Time Stop Time Status Last Admin Dose Admin Acetaminophen (Tylenol Tab) 650 mg Q4H PRN PO 08/28/17 22:45 09/27/17 22:44 08/29/17 00:38 650 MG Ondansetron HCl (Zofran Inj) 4 mg Q6H PRN IV 08/28/17 22:45 09/27/17 22:44 Aspirin (Ecotrin Tab) 325 mg DAILY PO 08/29/17 08:00 09/28/17 08:59 08/29/17 07:59 325 MG Carvedilol (Coreg Tab) 3.125 mg BID PO 08/29/17 08:00 09/28/17 08:59 08/29/17 08:00 3.125 MG Levothyroxine Sodium (Synthroid Tab) 100 mcg QPM PO 08/29/17 21:00 09/28/17 20:59 Miscellaneous Information (Order Awaiting Action) 1 ea QS N/A 08/29/17 08:00 09/28/17 07:59 Miscellaneous Information (Order Awaiting Action) 1 ea QS N/A 08/29/17 00:00 09/28/17 00:00 Potassium Chloride/Sodium Chloride 1,000 ml @ 80 mls/hr [id number] IV 08/29/17 00:30 08/29/17 12:59 08/29/17 00:43 80 MLS/HR Insulin Aspart (novoLOG ASPART) SLIDING SCALE G... Q6H SC 08/29/17 06:00 09/28/17 05:59 Glucose (Glucose 40% Gel) 15-30 GRAMS 15 GRAMS... UD PRN PO 08/28/17 23:45 09/27/17 23:44 Glucose (Glucose Chew Tab) 4-8 Tablets 4 Tabl... UD PRN PO 08/28/17 23:45 09/27/17 23:44 Dextrose (Dextrose 50% 50ML Syringe) 25-50ML OF 50% DW IV FOR... UD PRN IV 08/28/17 23:45 09/27/17 23:44 Glucagon (Glucagon Inj) 1 mg UD PRN SQ 08/28/17 23:45 09/27/17 23:44 (Batool Manzo, PA-C) Objective Vital Signs Date Time Temp Pulse Resp B/P (MAP) Pulse Ox O2 Delivery O2 Flow Rate FiO2 08/29/17 11:16 36.3 74 16 95/57 (70) 99 Room Air 08/29/17 08:00 98 Room Air 08/29/17 07:27 36.4 76 16 102/59 (73) 98 Room Air 08/29/17 04:44 36.6 77 18 104/64 (77) 97 Room Air 08/29/17 03:16 36.6 87 20 98/59 Room Air 08/28/17 22:38 88 18 98/56 98 Room Air 08/28/17 21:43 85 18 104/88 98 Room Air 08/28/17 20:25 100 08/28/17 20:12 98 Room Air 08/28/17 19:59 37.5 99 18 125/59 98 Room Air (Batool Manzo, PA-C) Physical Exam General Appearance: no apparent distress, + thin Eyes: normal inspection, PERRL ENT: hearing grossly normal Neck: supple Respiratory/Chest: lungs clear, no respiratory distress, no accessory muscle use Cardiovascular: regular rate, rhythm Abdomen: normal bowel sounds, non tender, soft Extremities: no pedal edema, no calf tenderness Neurologic/Psychiatric: alert, normal mood/affect, oriented x 3 Skin: normal color, warm/dry, no rash (Batool Manzo, LONG) Laboratory Results Last 24 Hours Test 08/28/17 20:25 08/29/17 00:42 08/29/17 05:27 08/29/17 06:00 White Blood Count 7.03 K/uL 4.21 K/uL Red Blood Count 3.16 M/uL 2.51 M/uL Hemoglobin 10.6 g/dL 8.5 g/dL Hematocrit 30.7 % 24.5 % Mean Corpuscular Volume 97.2 fL 97.6 fL Mean Corpuscular Hemoglobin 33.5 pg 33.9 pg Mean Corpuscular Hemoglobin Concent 34.5 g/dl 34.7 g/dl Platelet Count 251 K/uL 213 K/uL Mean Platelet Volume 9.4 fL 8.8 fL Neutrophils (%) (Auto) 76.5 % Lymphocytes (%) (Auto) 10.8 % Monocytes (%) (Auto) 5.5 % Eosinophils (%) (Auto) 7.0 % Basophils (%) (Auto) 0.1 % Neutrophils # (Auto) 5.37 K/uL Lymphocytes # (Auto) 0.76 K/uL Monocytes # (Auto) 0.39 K/uL Eosinophils # (Auto) 0.49 K/uL Basophils # (Auto) 0.01 K/uL RDW Standard Deviation 50.5 fL 51.8 fL RDW Coefficient of Variation 14.1 % 14.4 % Immature Granulocyte % (Auto) 0.1 % Immature Granulocyte # (Auto) 0.01 K/uL Sodium Level 129 mmol/L 133 mmol/L Potassium Level 3.7 mmol/L 3.5 mmol/L Chloride Level 93 mmol/L 101 mmol/L Carbon Dioxide Level 23 mmol/L 25 mmol/L Anion Gap 13.0 mmol/L 7.0 mmol/L Blood Urea Nitrogen 43 mg/dl 36 mg/dl Creatinine 1.51 mg/dl 1.31 mg/dl Est Creatinine Clear Calc Drug Dose 22.0 ml/min 25.6 ml/min Estimated GFR () 36.9 43.8 Estimated GFR (Non- 31.9 37.8 BUN/Creatinine Ratio 28.6 27.8 Random Glucose 185 mg/dl 143 mg/dl Calcium Level 8.9 mg/dl 7.8 mg/dl Total Bilirubin 0.5 mg/dl Direct Bilirubin 0.1 mg/dl Aspartate Amino Transf (AST/SGOT) 26 U/L Alanine Aminotransferase (ALT/SGPT) 42 U/L Alkaline Phosphatase 94 U/L Total Protein 6.4 gm/dl Albumin 2.9 gm/dl Lipase 361 U/L Bedside Glucose 177 mg/dl 148 mg/dl Phosphorus Level 2.6 mg/dl Magnesium Level 1.3 mg/dl Test 08/29/17 12:07 Bedside Glucose 158 mg/dl (Batool Manzo, PA-C) Assessment and Plan 82 y/o F Hx CHF, CAD, CMT, DM, HTN, hypothyroidism, chronic anemia, Lung CA - recently on Tarceva. Pt has had progressive weakness, RLQ abdominal pain, diarrhea, nausea and a few episodes of vomiting over the last 3 days. She denies hematochezia, fevers or rigors. Initial labs reveal EJ, hyponatremia and anemia which is chronic. A CT abdomen may be consistent with ileus or enteritis but did not reveal any bowel wall thickening or evidence of obstruction. Abdominal pain, diarrhea, nausea, vomiting, likely secondary to effect of Tarceva: - Admitted to med/surg - Stool cultures and c.diff- negative - Continue Imodium PRN - Advance diet as tolerated EJ on CKD stage III, secondary to dehydration- baseline Cr. 1.2- IMPROVING: - Treated IVF- will d/c today - Hold nephrotoxic agents and renally dose medications - Follow PRP Hypomagnesemia, likely secondary to diarrhea: Replaced w/ 2g Mag IV, follow mag level and replace PRN Hyponatremia, likely secondary to dehydration- IMPROVING: Treated w/ IVF Chronic systolic CHF w/ EF 20-25%- STABLE, CAD s/p bare metal stents, HTN: - Holding Lasix and Lisinopril due to EJ - Continue 3.125 mg BID, ASA 81 mg daily Chronic anemia- baseline hgb 10.0: Follow CBC Hypothyroidism: Continue Synthroid 100 mcg daily T2DM: - Held Metformin 1000 mg BID - BSG ACHS and ISS Lung CA- follows w/ Dr. Ho: - Continue Tarceva - Per patient, diarrhea/nosebleeds/nausea has been ongoing x4 weeks now- has discussed w/ Dr. Ho, all side effects of medications- however, Dr. Lexis Taylor would like patient to remain on medication and follow progress (hoping symptoms resolve)- patient last seen oncology on 08/24 DVT prophylaxis: Will hold chemical anticoagulation due to drop in hgb from 10- 8 (likely dilutional), if stable and staying longer than tomorrow will start Code Status: LEVEL I, FULL Dispo: From home, lives alone- PT/OT and CM consulted (Batool Manzo, PAAle) Reviewed: Pt Seen/Exam by Me (Cornelia Hunter MD) History Physician Hot Saw Helper Supervision Note: I interviewed and examined the patient. Discussed with JAMAL Manzo and agree with findings and plan as documented in the note. Any exceptions or clarifications are listed here: Pt feeling much improved today after IVF hydration and Magnesium replacement. No other concerns, is perla liquids Vitals reviewed NAD, AAOx3 RRR no mgr CTAB no wcr Abd +BS soft NT ND Ext no edema, no calf tenderness 82 yo female with lung CA on Tarceva, here with N/V/D and dehydration, and renal insufficiency. Improved greatly. Likely secondary to Tarceva. Stool studies negative -follow lytes and replace prn -adv diet to [facility] tonight for dinner -encouraged fluids -holding ACEI and lasix -can probably dc to [facility] tomorrow if PT/OT not recommending SNF Documented By: Cornelia Hunter (Cornelia Hunter MD)
[2017-08-29] MEDS ORDERED: LOPERAMIDE HCL 2 MG CAP PO PRN ×2 (13:15)
[2017-08-29] MEDS ORDERED: SIMETHICONE 80 MG CHEW PO PRN (13:15)
[2017-08-29] MEDS ORDERED: LEVOTHYROXINE 100 MCG TAB PO SCH (21:00)
[2017-08-29] MEDS ORDERED: NURSING VERBAL MED ORDER ONE (23:15)
[2017-08-30 03:13] VITALS: BP 110/63; PULSE 77; TEMP 36.6; O2SAT 97
[2017-08-30 06:53] LABS: HEMATOCRIT 27.5 % (37-47); MEAN CELL VOLUME 99.6 fL (80-100); MEAN CORPUSCULAR HEMOGLOBIN 33.3 pg (25-34); MEAN CORPUSCULAR HGB CONC 33.5 g/dl (32-36); MEAN PLATELET VOLUME 9.2 fL (7.4-10.4); PLATELET COUNT 262 K/uL (130-400); RED BLOOD COUNT 2.76 M/uL (4.2-5.4); WHITE BLOOD COUNT 4.57 K/uL (4.8-10.8)
[2017-08-30 07:26] VITALS: BP 122/74; PULSE 73; TEMP 36.8; O2SAT 96
[2017-08-30 07:28] LABS: BUN/CREATININE RATIO 17.2 (10-20); CALCIUM 8.4 mg/dl (8.5-10.1); CREATININE 1.11 mg/dl (0.60-1.20); MAGNESIUM 1.9 mg/dl (1.8-2.4); POTASSIUM 3.6 mmol/L (3.5-5.1)
[2017-08-30 08:00] VITALS: O2SAT 96
[2017-08-30] MEDS ORDERED: ERLOTINIB 150 MG PO SCH (08:00)
[2017-08-30] MEDS: RAPAFLO~ORDER AWAITING ACTION SCH ×2 (08:00)
[2017-08-30] MEDS: CARVEDILOL 3.125 MG TAB PO SCH (08:10)
[2017-08-30] MEDS: ASPIRIN 325 MG ECTAB PO SCH (08:10)
[2017-08-30] MEDS: INSULIN ASPART 100 UNITS/ML 3 ML PEN SC SCH ×2 (08:14→12:32)
[2017-08-30 11:12] VITALS: BP 99/61; PULSE 91; TEMP 36.5; O2SAT 99
[2017-08-30] MEDS ORDERED: FURO20TA PO (11:32)
[2017-08-30] MEDS: ACETAMINOPHEN 325 MG TAB PO PRN (12:05)
--- NOTE | 2017-08-30 12:18 | Discharge Instructions ---
Discharge Instructions Date of Service Aug 30, 2017. Admission Reason for Admission: Abdominal Pain, Nausea And Vomiting Discharge Discharge Diagnosis / Problem: Diarrhea, dehydration Discharge Goals Goal(s): Decrease discomfort, Improve function, Increase independence, Improve disease control, Improve nutritional status, Learn about illness, Diagnostic testing, Therapeutic intervention, Prevent Disease Progression Activity Recommendations Activity Limitations: resume your previous activity . Instructions / Follow-Up Instructions / Follow-Up Changed medication: Lasix 20 mg twice daily has been decreased to 20 mg DAILY- this is to help prevent reoccurring dehydration We discussed weighing yourself daily in the morning when you first wake up. If you notice a 3 pound weight gain, please notify your PCP. Resume all other regular home medications as prescribed. FOLLOW-UPS: Please follow-up with your PCP within 5-7 days Please follow-up/keep all of your subspecialty appointments Current Hospital Diet Patient's current hospital diet: Diabetes Type 2 Diet Discharge Diet Recommended Diet: Diabetes Type 2 Diet Pending Studies Studies pending at discharge: no Medical Emergencies . Who to Call and When: Medical Emergencies: If at any time you feel your situation is an emergency, please call 911 immediately. . Non-Emergent Contact Non-Emergency issues call your: Primary Care Provider . . "Provider Documentation" section prepared by Batool Manzo. . VTE Core Measure Inpt VTE Proph given/why not?: Unfractionated heparin SQ
--- NOTE | 2017-08-30 12:19 | Discharge Summary ---
Discharge Summary Date of Service Aug 30, 2017. (Batool Manzo, LONG) Discharge Summary Admission Date: Aug 28, 2017 at 22:42 Discharge Date: Aug 30, 2017 Discharge Disposition: Home Principal Diagnosis: Diarrhea, dehydration Problems/Secondary Diagnoses: Abdominal pain, diarrhea, nausea, vomiting, likely secondary to effect of Tarceva EJ on CKD stage III Hypomagnesemia Hyponatremia Chronic systolic CHF w/ EF 20-25% CAD s/p bare metal stents HTN Chronic anemia Hypothyroidism T2DM Lung CA Immunizations: Have You Had Influenza Vaccine: Yes Influenza Vaccine Date: Aug 13, 2013 History of Tetanus Vaccine?: Unknown History of Pneumococcal: Yes Pneumococcal Date: Aug 13, 2012 History of Hepatitis B Vaccine: No Procedures: ABDOMEN AND PELVIS CT WITHOUT CONTRAST CT DOSE: 251.98 mGy.cm HISTORY: Right-sided abdominal pain. eval for colitis TECHNIQUE: Multiaxial CT images of the abdomen and pelvis were performed without contrast. A dose lowering technique was utilized adhering to the principles of ALARA. COMPARISON STUDY: Abdomen and pelvis CT 09/29/2016. Chest CT 07/07/2017. FINDINGS: Stable mild elevation of the left hemidiaphragm. Stable 6 mm groundglass nodule within the right lower lobe. No pneumoperitoneum. No pneumatosis. No suspicious lytic or blastic osseous lesions. The unenhanced liver, gallbladder, spleen, adrenal glands, pancreas, and left kidney are unremarkable. No renal stones or hydronephrosis. Stable punctate calcification within the upper pole of the right kidney. Calcified plaque within the normal caliber abdominal aorta. No retroperitoneal lymphadenopathy. Bladder remains mildly distended. The uterus appears surgically absent. Suboptimal evaluation for bowel pathology due to the lack of intravenous and oral contrast. However, there is no definite bowel wall thickening or obstruction. Mildly distended fluid-filled loops of large and small bowel are seen throughout the abdomen. Normal appendix. IMPRESSION: 1. Suboptimal evaluation for bowel pathology due to the lack of intravenous and oral contrast. However, there is no definite bowel wall thickening or obstruction. 2. Mildly distended fluid-filled loops of large and small bowel seen throughout the abdomen. This could be due to an ileus or gastroenteritis. 3. Normal appendix. 4. Stable 6 mm groundglass nodule within the right lower lobe. 5. Chronic elevation of the left hemidiaphragm. This is likely postoperative. Electronically signed by: Hal Small M.D. 08/28/2017 9:05 PM Dictated Date/Time: 08/28/2017 8:55 PM The status of this report is Signed. Draft = Not yet reviewed or approved by Radiologist. Signed = Reviewed and approved by Radiologist. (Batool Manzo, LONG) Medication Reconciliation Changed Medications: Furosemide (Lasix) 20 Mg Tab 1 TAB PO DAILY for 30 Days, #30 TAB 5 Refills (Changed from: 20 MG; BID17; Refills: ) Continued Medications: Acetaminophen (Tylenol) 500 Mg Tab 1000 MG PO UD PRN for Pain, TAB Aspirin (Aspirin Ec) 325 Mg Tab 325 MG PO DAILY Carvedilol (Coreg) 3.125 Mg Tab 3.125 MG PO BID Cranberry (Vaccinium Macrocarp (Cranberry) Unknown Strength Cap 1 CAP PO DAILY Cyanocobalamin (Vitamin B-12) 1,000 Mcg Tab 1000 MCG PO DAILY, TAB Erlotinib (Tarceva) 150 Mg Tab 150 MG PO DAILY, TAB Garlic (Garlic) Unknown Strength Cap 1 CAP PO DAILY Levothyroxine Sodium (Levothyroxine Sodium) 100 Mcg Tab 100 MCG PO QPM Lisinopril (Lisinopril) 2.5 Mg Tab 2.5 MG PO QPM, TAB Loperamide-Simethicone (Imodium Multi-Symptom Rel) 1 Tab Tab 1 TAB PO UD PRN for GI Upset Metformin Hcl (Glucophage) 500 Mg Tab 1000 MG PO BIDM, TAB Multivitamin (Multivitamin) Tab 1 TAB PO QAM Silodosin (Rapaflo) 8 Mg Cap 8 MG PO QPM Discharge Exam Review of Systems: Constitutional: No fever, No chills, No sweats, No weakness, No fatigue ENT: No hearing loss Respiratory: No cough, No shortness of breath, No hemoptysis Cardiovascular: No chest pain, No edema, No palpitations Abdomen: + diarrhea (improving- 1 episode since last evening ), No pain, No nausea, No vomiting, No constipation Musculoskeletal: No joint pain, No muscle pain, No swelling, No calf pain Genitourinary - Female: No dysuria, No urinary frequency, No hematuria Neurologic: No weakness, No numbness/tingling Psychiatric: No depression symptoms, No anxiety Endocrine: No fatigue Hematologic / Lymphatic: No abnormal bleeding/bruising Integumentary: No rash, No itch, No new/changing skin lesions Physical Exam: General Appearance: no apparent distress, + thin Eyes: normal inspection, PERRL ENT: hearing grossly normal Neck: supple Respiratory/Chest: lungs clear, no respiratory distress, no accessory muscle use Cardiovascular: regular rate, rhythm Abdomen / GI: normal bowel sounds, non tender, soft Extremities: no calf tenderness, no pedal edema Neurologic/Psychiatric: alert, normal mood/affect, oriented x 3 Skin: normal color, warm/dry, no rash (Batool Manzo, PATatiC) Hospital Course Admission H&P: 82 y/o F Hx CHF, CAD, CMT, DM, HTN, hypothyroidism, chronic anemia, Lung CA - recently on Tarceva. Pt has had progressive weakness, RLQ abdominal pain, diarrhea, nausea and a few episodes of vomiting over the last 3 days. She denies hematochezia, fevers or rigors. Initial labs reveal EJ, hyponatremia and anemia which is chronic. A CT abdomen may be consistent with ileus or enteritis but did not reveal any bowel wall thickening or evidence of obstruction. Physical Exam Vital Signs Date Time Temp Pulse Resp B/P (MAP) Pulse Ox O2 Delivery O2 Flow Rate FiO2 08/28/17 21:43 85 18 104/88 98 Room Air 08/28/17 20:25 100 08/28/17 20:12 98 Room Air 08/28/17 19:59 37.5 99 18 125/59 98 Room Air General Appearance: WD/WN, no apparent distress Head: normocephalic Eyes: normal inspection ENT: normal ENT inspection, pharynx normal Neck: supple, no JVD Respiratory/Chest: chest non-tender, lungs clear, normal breath sounds Cardiovascular: regular rate, rhythm, no edema Abdomen/GI: normal bowel sounds, + tenderness (Mild diffuse tenderness - no distention, guarding or rebound) Back: normal inspection, no CVA tenderness, no muscle spasm, normal range of motion Extremities/Musculoskelatal: normal inspection, no calf tenderness, normal capillary refill Neurologic/Psych: dramatic director II-XII nml as tested, no motor/sensory deficits, alert Skin: normal color, warm/dry Hospital Course: Abdominal pain, diarrhea, nausea, vomiting, likely secondary to effect of Tarceva- IMPROVING: - Admitted to med/surg - Stool cultures and c.diff- negative - Continue Imodium PRN - Advance diet as tolerated- tolerating full diet prior to discharge EJ on CKD stage III, secondary to dehydration- baseline Cr. 1.2- RESOLVED: - Treated IVF - Hold nephrotoxic agents and renally dose medications - Follow PRP Hypomagnesemia, likely secondary to diarrhea- RESOLVED: Replaced w/ 2g Mag IV, follow mag level and replace PRN Hyponatremia, likely secondary to dehydration- IMPROVING: Treated w/ IVF Chronic systolic CHF w/ EF 20-25%- STABLE, CAD s/p bare metal stents, HTN: - Holding Lasix and Lisinopril due to EJ -- Resume Lisinopril at discharge, decrease Lasix to 20 mg daily- discussed daily weights w/ patient - Continue 3.125 mg BID, ASA 81 mg daily Chronic anemia- baseline hgb 10.0- STABLE: Follow CBC Hypothyroidism: Continue Synthroid 100 mcg daily T2DM: - Held Metformin 1000 mg BID- resume at discharge - BSG ACHS and ISS Lung CA- follows w/ Dr. Ho: - Continue Tarceva - Per patient, diarrhea/nosebleeds/nausea has been ongoing x4 weeks now- has discussed w/ Dr. Ho, all side effects of medications- however, Dr. Lexis Taylor would like patient to remain on medication and follow progress (hoping symptoms resolve)- patient last seen oncology on 08/24 DVT prophylaxis: TEDs/SCDs Code Status: LEVEL I, FULL Dispo: Discharge to home w/ continued family support Total Time Spent: Greater than 30 minutes This includes examination of the patient, discharge planning, medication reconciliation, and communication with other providers. (Batool Manzo, LONG) Discharge Instructions Please refer to the electronic Patient Visit Report (Discharge Instructions) for additional information. (Batool Manzo, LONG) Reviewed: Pt Seen/Exam by Me (Cornelia Hunter MD) History Physician Instructor Ground Services Supervision Note: I interviewed and examined the patient. Discussed with JAMAL Manzo and agree with findings and plan as documented in the note. Any exceptions or clarifications are listed here: Doing very well today, feels stronger, labs look great, no concerns, perla po Vitals reviewed NAD, AAOx3 RRR no mgr CTAB no wcr Abd +BS soft NT ND Ext no edema, no calf tenderness 82 yo female with lung CA on Tarceva, here with N/V/D and dehydration, and renal insufficiency. Improved greatly. Likely secondary to Tarceva. Stool studies negative. Much improved after IVFs and lyte replacement Stable for discharge. Renal function improved -continue Imodium prn diarrhea -f/u with Oncology as scheduled -ok to restart ACEI and lasix but decrease lasix dose to once daily given chronic loose stools Documented By: Cornelia Hunter (Cornelia Hunter MD)
[2017-08-30 12:59] VITALS: BP 99/61; PULSE 91; TEMP 36.5; O2SAT 99
== END 2017-08-30 14:00 | disposition home or self-care (01) | DRG 392 ==
LOC: C.EDB 19:51 → C.4E 22:42 → ENRESERV 22:51 → C.4E 23:58 → UNDOADMIN 23:58
PROVIDERS: ADMIT Internal Medicine; ATTEND Family Medicine
DX: R10.31 Right lower quadrant pain (principal); I50.22 Chronic systolic (congestive) heart failure; I13.0 Hypertensive heart and chronic kidney disease with heart failure and stage 1 through stage 4 chronic kidney disease, or unspecified chronic kidney disease; N17.9 Acute kidney failure, unspecified; E87.1 Hypo-osmolality and hyponatremia; R19.7 Diarrhea, unspecified; R11.2 Nausea with vomiting, unspecified; T45.1X5A Adverse effect of antineoplastic and immunosuppressive drugs, initial encounter; Z79.82 Long term (current) use of aspirin; E86.0 Dehydration; I25.10 Atherosclerotic heart disease of native coronary artery without angina pectoris; E03.9 Hypothyroidism, unspecified; D64.9 Anemia, unspecified; G60.0 Hereditary motor and sensory neuropathy; E78.5 Hyperlipidemia, unspecified; Z87.891 Personal history of nicotine dependence; Z83.3 Family history of diabetes mellitus; Z82.49 Family history of ischemic heart disease and other diseases of the circulatory system; N18.3 Chronic kidney disease, stage 3 (moderate); E83.42 Hypomagnesemia

== ENCOUNTER → 2017-10-14 | Outpatient (CLI) | payer OTHER, MEDICARE ==
[~2017-10-14] MED LIST changes: +ACET-1256 PO; +ASPI325T39 PO; -ASPI81TA28 PO; +CRAN1CAP16 PO; +CYAN10005 PO; -CYAN100T PO; -FERR325T51 PO; -FURO-85 PO; +FURO20TA PO; +GARL10007 PO; +LOPE1TAB PO; +OPTIRAY 320 IV PRN; -ROSU5TAB PO; -SULF800T23 PO; +[UNRECOGNIZED DRUG - CODE] PO
--- NOTE | 2017-10-14 15:11 | DIAGNOSTIC IMAGING REPORT ---
(CHEST) THORAX WITH CT DOSE: 577.39 mGy.cm HISTORY: Lung cancer LUNG ADENOCARCINOMA TECHNIQUE: Multiaxial CT images of the chest were performed following the intravenous administration of contrast. A dose lowering technique was utilized adhering to the principles of ALARA. COMPARISON: 07/07/2017 FINDINGS: Moderate atherosclerotic change of thoracic aorta is stable. No evidence for true aneurysm or dissection. The hilar and mediastinal regions remain negative for significant justine change. Postoperative changes consistent with the patient's prior left upper lobe resection are again noted. Parenchymal nodularity throughout the hemithoraces persists. There is a very subtle unchanging groundglass density image 48 unchanged from the prior study within the right upper lobe. Small pleural-based nodular density posterior aspect left lung image 74 is stable. Nodular density left midlung image 87 now measures 6 mm slightly increased from 5 mm on the prior study. Small additional peripheral nodular density slightly increased in density. Cystic nodule left lower lobe measuring 4 mm image 93. Right midlung nodular density measuring 5.5 mm slightly increased from 4 mm on the prior exam. Several scattered nodular densities of the right as well as left lower lobe regions minimally increased in size at all locations by bilaterally 121.5 mm on average. Increase in pleural-based density left lateral gastric angle also slightly progressive. No major increase in number of metastatic foci. IMPRESSION: 1. Slightly progressive metastatic change throughout both hemithoraces. 2. The pulmonary nodularity previously described is slightly increased in size on average of 1 to 1.5 mm at each location. 3. No significant change in number of metastatic nodules. 4. No significant hilar or mediastinal adenopathy. The above report was generated using voice recognition software. It may contain grammatical, syntax or spelling errors. Electronically signed by: Boyd Castañeda M.D. 10/14/2017 3:10 PM Dictated Date/Time: 10/14/2017 3:03 PM
--- NOTE | 2017-10-14 15:36 | DIAGNOSTIC IMAGING REPORT ---
CT OF THE ABDOMEN AND PELVIS WITH CONTRAST CLINICAL HISTORY: Lung adenocarcinoma. COMPARISON STUDY: CT of the abdomen and pelvis August 28, 2017 and PET/CT June 23, 2016. TECHNIQUE: Following IV administration of 91 mL of [id number], axial images of the abdomen and pelvis were obtained from the lung bases to the proximal femurs. Images were reviewed in the axial, sagittal, and coronal planes. IV contrast was administered without complication. A dose lowering technique was utilized adhering to the principles of ALARA. Oral contrast was administered. FINDINGS: The chest CT will be reported separately. A 6 mm right lower lobe nodule has slightly increased in size and CT of August 28, 2017. The spleen, adrenal glands, kidneys and pancreas are unremarkable. There is no biliary or pancreatic ductal dilatation. No hepatic lesions are identified. There is no evidence for a bowel obstruction. Caliber and wall thickness of small and large bowel are normal. No enlarged abdominal or pelvic lymph nodes are present. There is no ascites. There is extensive atherosclerotic plaque of the abdominal aorta and major branch vessels. No suspicious osseous lesions are present. There is a moderate amount of stool within the colon and rectum. IMPRESSION: 1. No evidence of metastatic disease within the abdomen or pelvis. 2. Slight increase in size of a right lower lobe nodule which suggests progression of metastatic disease since CT of August 28, 2017. The chest CT will be reported separately. Please see that report for further description. Electronically signed by: Enrike Romo M.D. 10/14/2017 3:35 PM Dictated Date/Time: 10/14/2017 3:06 PM
== END | disposition home or self-care (01) ==
LOC: C.CTS 14:26
PROVIDERS: ATTEND Internal Medicine Hematology & Oncology
DX: C34.12 Malignant neoplasm of upper lobe, left bronchus or lung (principal)

== ENCOUNTER → 2017-10-18 | Outpatient (CLI) | payer OTHER, MEDICARE ==
[~2017-10-18] MED LIST changes: -OPTIRAY 320 IV PRN
[2017-10-18 12:56] LABS: HEMOGLOBIN A1C 6.7 % (4.5-5.6)
[2017-10-18 12:59] LABS: ALT/SGPT 20 U/L (12-78); BLOOD UREA NITROGEN 24 mg/dl (7-18); CALCIUM 9.5 mg/dl (8.5-10.1); CARBON DIOXIDE 27 mmol/L (21-32); CHOLESTEROL 205 mg/dl (0-200); CREATININE 1.17 mg/dl (0.60-1.20); GLUCOSE 146 mg/dl (70-99); POTASSIUM 4.1 mmol/L (3.5-5.1); SODIUM 134 mmol/L (136-145)
[2017-10-18 13:10] LABS: LDL CHOLESTEROL CALCULATED 111 mg/dl
== END | disposition home or self-care (01) ==
LOC: C.LABBFT 08:32
PROVIDERS: ATTEND Family Medicine
DX: E11.8 Type 2 diabetes mellitus with unspecified complications (principal); I25.10 Atherosclerotic heart disease of native coronary artery without angina pectoris

== ENCOUNTER → 2017-10-19 | Outpatient (CLI) | payer OTHER, MEDICARE | END | disposition home or self-care (01) | LOC: C.LABBFT 14:39 | PROVIDERS: ATTEND Family Medicine | DX: E11.8 Type 2 diabetes mellitus with unspecified complications (principal) ==

== ENCOUNTER 2018-02-09 00:43 | Observation (INO) | payer OTHER, MEDICARE ==
[~2018-02-09] VITALS: Ht 162.6 cm; Wt 49.2 kg
[~2018-02-09 00:43] MED LIST changes: +LISI-1116 PO; -LISI2.5T5 PO
--- NOTE | 2018-02-09 01:01 | EMERGENCY ROOM VISIT NOTE ---
History Report prepared by Olga: Davida Coronado Under the Supervision of: Dr. Vinh Diaz M.D. First contact with patient: 00:52 Chief Complaint: FLANK PAIN Stated Complaint: SEVERE PAIN LOWER L BACK History of Present Illness The patient is an 82 year old female who presents to the Emergency Room with complaints of persistent left flank pain that started 2 hours ago. The patient rates her pain a 6/10 in severity. The patient reports she has nausea and vomiting. She states her bowel movements have been normal. She denies any urine symptoms. The patient denies a history of back pain or kidney stones. She reports she has a history of urine infections. She notes she took 2 Advil for the pain but states it did not relieve the pain. Source of History: patient Onset: 2 hours ago Position: other (left flank) Symptom Intensity: 6/10 Timing: other (persistent) Associated Symptoms: + nausea, + vomiting, No urinary symptoms Review of Systems See HPI for pertinent positives & negatives. A total of 10 systems reviewed and were otherwise negative. Past Medical & Surgical Medical Problems: (1) Abdominal pain (2) Abdominal pain (3) CMT (Mcfnzxt-Gjzqh-Ifyfu disease) (4) Diabetes (5) Fever (6) Fever (7) HTN (hypertension) (8) Hyponatremia (9) Hypothyroidism (10) Lung mass (11) Nausea & vomiting (12) Sepsis (13) Urosepsis (14) UTI (urinary tract infection) (15) UTI (urinary tract infection) Family History Diabetes mellitus Heart disease Social History Smoking Status: Never Smoker Alcohol Use: none Drug Use: none Marital Status: Housing Status: lives alone Occupation Status: retired Current/Historical Medications Scheduled Aspirin (Aspirin Ec), 81 MG PO DAILY Carvedilol (Coreg), 3.125 MG PO BID Cranberry (Vaccinium Macrocarp (Cranberry), 1 CAP PO DAILY Cyanocobalamin (Vitamin B-12), 1,000 MCG PO DAILY Furosemide (Lasix), 1 TAB PO DAILY Furosemide (Lasix), 20 MG PO BID Garlic (Garlic), 1 CAP PO DAILY Levothyroxine Sodium (Levothyroxine Sodium), 100 MCG PO QPM Lisinopril (Lisinopril), 2.5 MG PO QPM Metformin Hcl (Glucophage), 1,000 MG PO BIDM Multivitamin (Multivitamin), 1 TAB PO QAM Silodosin (Rapaflo), 8 MG PO QPM Scheduled PRN Acetaminophen (Tylenol), 1,000 MG PO UD PRN for Pain Loperamide-Simethicone (Imodium Multi-Symptom Rel), 1 TAB PO UD PRN for GI Upset Ondansetron Hcl (Zofran), 8 MG PO DIRECTED PRN for Nausea Allergies Coded Allergies: Amoxicillin (Verified Allergy, Severe, hives, 02/09/18) Clavulanic Acid (Verified Allergy, Severe, hives, 02/09/18) Penicillins (Verified Allergy, Unknown, HIVES, 02/09/18) Methimazole (Unverified Adverse Reaction, Unknown, SEVERE NAUSEA, 02/09/18) Tramadol (Unverified Adverse Reaction, Unknown, NAUSEA, 02/09/18) Physical Exam Vital Signs Date Time Temp Pulse Resp B/P (MAP) Pulse Ox O2 Delivery O2 Flow Rate FiO2 02/09/18 02:45 64 16 127/63 96 Room Air 02/09/18 00:47 36.3 95 18 136/71 99 Room Air Physical Exam GENERAL: Patient is elderly appearing and in mild distress. EYES: No scleral icterus, unremarkable pupils. ENT: Mucous membranes dry, no nasal congestion. NECK: No masses appreciated, no meningismus, trachea is midline. RESPIRATORY: No dyspnea. Clear to auscultation and equal bilaterally. No wheeze , no rhonchi. CARDIOVASCULAR: Regular rate and rhythm. No murmurs, rubs, gallops appreciated. GASTROINTESTINAL: Abdomen soft, nontender, no peritonitis. Bowel sounds positive. No masses appreciated. BACK: No midline tenderness, vague left CVA tenderness to palpation EXTREMITIES: Normal motion all extremities, no cyanosis, no edema. NEUROLOGIC: Alert and oriented, no acute motor or sensory deficits, no focal weakness, cranial nerves grossly intact. SKIN: No rash, no jaundice, no diaphoresis. Medical Decision & Procedures ER Provider Diagnostic Interpretation: Stat Rad Radiology results and stated below per my review and radiologist interpretation: CT ABDOMEN & PELVIS Without Contrast: No definite renal collecting stones or significant interval development of hydronephrosis. Retroperitoneal calcifications are stable from October 14, 2017 without definite ureteral stone. Stable significant stool throughout the colon. No definite high-grade obstruction or free fluid. The unenhanced liver, gallbladder, pancreas, spleen and adrenals are unremarkable. Atherosclerotic calcification of the aorta, stable. The pulmonary nodule involving the right lower lobe continues to increase in size, now measuring 10 mm from 6 mm previous. Pulmonary nodule left lower lobe measures 6 mm (series 2; image 2). Radiologist: Ritesh Pablo MD Laboratory Results 02/09/18 01:20 Red Blood Count 3.05, Mean Corpuscular Volume 99.0, Mean Corpuscular Hemoglobin 32.5, Mean Corpuscular Hemoglobin Concent 32.8, Mean Platelet Volume 9.6, Neutrophils (%) (Auto) 52.5, Lymphocytes (%) (Auto) 36.8, Monocytes (%) (Auto) 6.1, Eosinophils (%) (Auto) 3.2, Basophils (%) (Auto) 0.8, Neutrophils # (Auto) 4.62, Lymphocytes # (Auto) 3.24, Monocytes # (Auto) 0.54, Eosinophils # (Auto) 0.28, Basophils # (Auto) 0.07 Test 02/09/18 01:20 02/09/18 02:00 White Blood Count 8.80 K/uL (4.8-10.8) Red Blood Count 3.05 M/uL (4.2-5.4) Hemoglobin 9.9 g/dL (12.0-16.0) Hematocrit 30.2 % (37-47) Mean Corpuscular Volume 99.0 fL (80-100) Mean Corpuscular Hemoglobin 32.5 pg (25-34) Mean Corpuscular Hemoglobin Concent 32.8 g/dl (32-36) Platelet Count 281 K/uL (130-400) Mean Platelet Volume 9.6 fL (7.4-10.4) Neutrophils (%) (Auto) 52.5 % Lymphocytes (%) (Auto) 36.8 % Monocytes (%) (Auto) 6.1 % Eosinophils (%) (Auto) 3.2 % Basophils (%) (Auto) 0.8 % Neutrophils # (Auto) 4.62 K/uL (1.4-6.5) Lymphocytes # (Auto) 3.24 K/uL (1.2-3.4) Monocytes # (Auto) 0.54 K/uL (0.11-0.59) Eosinophils # (Auto) 0.28 K/uL (0-0.5) Basophils # (Auto) 0.07 K/uL (0-0.2) RDW Standard Deviation 54.0 fL (36.4-46.3) RDW Coefficient of Variation 15.1 % (11.5-14.5) Immature Granulocyte % (Auto) 0.6 % Immature Granulocyte # (Auto) 0.05 K/uL (0.00-0.02) Est Creatinine Clear Calc Drug Dose 20.7 ml/min Total Bilirubin 0.2 mg/dl (0.2-1) Direct Bilirubin < 0.1 mg/dl (0-0.2) Aspartate Amino Transf (AST/SGOT) 14 U/L (15-37) Alanine Aminotransferase (ALT/SGPT) 18 U/L (12-78) Alkaline Phosphatase 107 U/L (45-117) Total Protein 6.5 gm/dl (6.4-8.2) Albumin 3.2 gm/dl (3.4-5.0) Lipase 306 U/L (73-393) Urine Color YELLOW Urine Appearance CLEAR (CLEAR) Urine pH 5.5 (4.5-7.5) Urine Specific [place] 1.010 (1.000-1.030) Urine Protein NEG (NEG) Urine Glucose (UA) NEG (NEG) Urine Ketones NEG (NEG) Urine Occult Blood NEG (NEG) Urine Nitrite POS (NEG) Urine Bilirubin NEG (NEG) Urine Urobilinogen NEG (NEG) Urine Leukocyte Esterase SMALL (NEG) Urine WBC (Auto) 5-10 /hpf (0-5) Urine RBC (Auto) 0-4 /hpf (0-4) Urine Hyaline Casts (Auto) 1-5 /lpf (0-5) Urine Epithelial Cells (Auto) 20-30 /lpf (0-5) Urine Bacteria (Auto) 4+ (NEG) Laboratory results as reviewed by me. Medications Administered Medications (Trade) Dose Ordered Sig/Nahed Route Start Time Stop Time Status Last Admin Dose Admin Fentanyl Citrate (Fentanyl Inj) 25 mcg NOW STAT IV 02/09/18 01:03 02/09/18 01:05 DC 02/09/18 01:23 25 MCG Sodium Chloride 500 ml @ 999 mls/hr Q31M STAT IV 02/09/18 01:03 02/09/18 01:33 DC 02/09/18 01:24 999 MLS/HR Ondansetron HCl (Zofran Inj) 4 mg NOW STAT IV 02/09/18 01:03 02/09/18 01:05 DC 02/09/18 01:24 4 MG Hydromorphone HCl (Dilaudid Inj) 0.5 mg NOW STAT IV 02/09/18 02:38 02/09/18 02:39 DC 02/09/18 02:43 0.5 MG Ceftriaxone Sodium (Rocephin Inj) 1 gm NOW STAT IV 02/09/18 02:44 02/09/18 02:48 DC 02/09/18 02:44 1 GM ED Course 0100: The patient was evaluated in room B12B. A complete history and physical exam was performed. 0250: The patient is receiving her second dose of pain medications and she is agreeable to staying in the hospital. MOJGAN Nolan has been consulted and she will evaluate the patient for further treatment and disposition. Medical Decision Differential: Renal Colic, Pyelonephritis, Hydronephrosis, Appendicitis, Diverticulitis, Retroperitoneal Bleed/Infection, Aortic Pathology, MSK, Neurologic Pathology, amongst other pathologies entertained. 82 yr old female arrives for evaluation of left flank pain throughout the evening. She required several rounds IV narcotics to control pain. Given age and amount of pain felt that CT imaging required which was similar to previous without clear stone nor new hydro at this time. She has clearly infected urine and with left flank pain must suspect this is pyelo, in addition to the acute renal insufficiency. Likely dehydration at BUN is significantly elevated from her baseline. Given initial fluid bolus and will need to come in for IV abx and gentle hydration. Rocephin given IV as only rash to pnc in past. Hospitalist consulted for further management. Medication Reconcilliation Current Medication List: was personally reviewed by me Blood Pressure Screening Patient's blood pressure: Elevated blood pressure Blood pressure disposition: Elevated BP felt to be situational Consults Time Called: 024 Consulting Physician: MOJGAN Nolan Returned Call: 025 MOJGAN Nolan has been consulted and she will evaluate the patient for further treatment and disposition. Impression Primary Impression: Pyelonephritis Additional Impressions: Left flank pain Renal insufficiency Scribe Attestation The scribe's documentation has been prepared under my direction and personally reviewed by me in its entirety. I confirm that the note above accurately reflects all work, treatment, procedures, and medical decision making performed by me. Departure Information Dispostion Being Evaluated By Hospitalist Referrals Shaneka Shook MD (PCP) Patient Instructions My [facility] Problem Qualifiers
[2018-02-09] MEDS ORDERED: FENTANYL CITRATE INJ 50 MCG/1 ML 2 ML VIAL IV STA (01:03)
[2018-02-09] MEDS ORDERED: ONDANSETRON INJ 2 MG/ML 2 ML VIAL IV STA (01:03)
[2018-02-09] MEDS ORDERED: SODIUM CHLORIDE 0.9% 500ML 500 ML IV STA (01:03)
[2018-02-09] MEDS ORDERED: FURO-85 PO (01:18)
[2018-02-09] MEDS ORDERED: SILO8CAP PO (01:20)
[2018-02-09] MEDS ORDERED: ASPI81TA28 PO (01:21)
[2018-02-09] MEDS ORDERED: ONDA-170 PO (01:22)
[2018-02-09 01:40] LABS: BASO % 0.8 %; BASO ABS # 0.07 K/uL (0-0.2); EOS % 3.2 %; EOS ABS # 0.28 K/uL (0-0.5); HEMATOCRIT 30.2 % (37-47); HEMOGLOBIN 9.9 g/dL (12.0-16.0); IG# 0.05 K/uL (0.00-0.02); LYMPH % 36.8 %; LYMPH ABS # 3.24 K/uL (1.2-3.4); MEAN CORPUSCULAR HEMOGLOBIN 32.5 pg (25-34); MEAN CORPUSCULAR HGB CONC 32.8 g/dl (32-36); MEAN PLATELET VOLUME 9.6 fL (7.4-10.4); MONO % 6.1 %; MONO ABS # 0.54 K/uL (0.11-0.59); NEUT % 52.5 %; NEUT ABS # 4.62 K/uL (1.4-6.5); PLATELET COUNT 281 K/uL (130-400); RED CELL DISTRIBUTION WIDTH CV 15.1 % (11.5-14.5)
[2018-02-09 02:08] LABS: ALBUMIN 3.2 gm/dl (3.4-5.0); ALKALINE PHOSPHATASE 107 U/L (45-117); ALT/SGPT 18 U/L (12-78); BLOOD UREA NITROGEN 51 mg/dl (7-18); CALCIUM 8.9 mg/dl (8.5-10.1); CARBON DIOXIDE 25 mmol/L (21-32); CREATININE 1.59 mg/dl (0.60-1.20); GLUCOSE 136 mg/dl (70-99); LIPASE 306 U/L (73-393); TOTAL PROTEIN 6.5 gm/dl (6.4-8.2)
[2018-02-09 02:15] LABS: POTASSIUM 4.2 mmol/L (3.5-5.1); SODIUM 134 mmol/L (136-145)
[2018-02-09 02:20] LABS: AST/SGOT 14 U/L (15-37)
[2018-02-09] MEDS ORDERED: HYDROmorphone INJ 0.5 MG/0.5 ML SYR IV STA (02:38)
[2018-02-09] MEDS ORDERED: CEFTRIAXONE SOD INJ 1 GM ADDVIAL IV STA (02:44)
--- NOTE | 2018-02-09 03:07 | History and Physical ---
History & Physical Date & Time of Service: February 09, 2018 at 03:03 Chief Complaint: Severe Pain Lower L Back Primary Care Physician: Shaneka Shook MD History of Present Illness 82 y/o F Hx CHF, CAD, CMT, DM, HTN, hypothyroidism, chronic anemia, Lung CA - recently discontinued Tarceva 10/20 presents to ED with acute onset left flank pain since yesterday. Associated with nausea but no vomiting and urgency, but otherwise no dysuria, frequency, nocturia, or noted urine abnormalities. She denies fevers/chills/sweats. Patient has previous history of sepsis secondary to UTI, but nothing in the past year. She has been using cranberry pills and Rapaflo, which she feels has been helpful. She admits she does not alwasy keep herself well hydrated. Use of Advil did not relieve her pain symptoms, so she came to the ED for evaluation. She otherwise denies headaches, CP, palpitations , dyspnea, abdominal pain, lower extremity swelling or rashes. She is tolerating diet and stooling appropriately. In the ED, labs revealed elevated creatinine, and UA consistent with UTI. CT was unremarkable. She received IVF, ondansetron, Dilaudid, fentanyl and ceftriaxone. ROS is unremarkable except as noted above. Past Medical/Surgical History PMH: 1. 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 Chronic systolic CHF, EF 30-35% 3. DM II 4. HTN 5. Left lung adenocarcinoma was diagnosed in 2016 - initially treated with Lobectomy. B/L recurrence was daignosed approximately one year following and she was placed directly on Tarceva. 6. CAD s/p bare metal stent - placed at [facility] 7. Hypothyroidism 8. Hyperlipidemia 9. Polio as a child 10. Chronic anemia - Hb 10-11 Surgical: 1. Hysterectomy 2. Carpal tunnel release 3. B/L cataract extraction 4. GILLIAN lung lobectomy Family History Diabetes mellitus Heart disease 1 daughter, 2 sons with Ryuxkjs-Seetq-Cggig Disease Mother, father - T2DM Mother - heart disease Father - Nftkgrr-Hofbu-Qvthj Social History Smoking Status: Never Smoker Drug Use: none Marital Status: Housing status: lives alone Occupational Status: retired Immunizations History of Influenza Vaccine: Yes Influenza Vaccine Date: Aug 13, 2013 History of Tetanus Vaccine?: Unknown History of Pneumococcal: Yes Pneumococcal Date: Aug 13, 2012 History of Hepatitis B Vaccine: No Allergies Coded Allergies: Amoxicillin (Verified Allergy, Severe, hives, 02/09/18) Clavulanic Acid (Verified Allergy, Severe, hives, 02/09/18) Penicillins (Verified Allergy, Unknown, HIVES, 02/09/18) Methimazole (Unverified Adverse Reaction, Unknown, SEVERE NAUSEA, 02/09/18) Tramadol (Unverified Adverse Reaction, Unknown, NAUSEA, 02/09/18) Home Medications Scheduled Aspirin (Aspirin Ec), 81 MG PO DAILY Carvedilol (Coreg), 3.125 MG PO BID Cranberry (Vaccinium Macrocarp (Cranberry), 1 CAP PO DAILY Cyanocobalamin (Vitamin B-12), 1,000 MCG PO DAILY Furosemide (Lasix), 1 TAB PO DAILY Furosemide (Lasix), 20 MG PO BID Garlic (Garlic), 1 CAP PO DAILY Levothyroxine Sodium (Levothyroxine Sodium), 100 MCG PO QPM Lisinopril (Lisinopril), 2.5 MG PO QPM Metformin Hcl (Glucophage), 1,000 MG PO BIDM Multivitamin (Multivitamin), 1 TAB PO QAM Silodosin (Rapaflo), 8 MG PO QPM Scheduled PRN Acetaminophen (Tylenol), 1,000 MG PO UD PRN for Pain Loperamide-Simethicone (Imodium Multi-Symptom Rel), 1 TAB PO UD PRN for GI Upset Ondansetron Hcl (Zofran), 8 MG PO DIRECTED PRN for Nausea Physical Exam Vital Signs Date Time Temp Pulse Resp B/P (MAP) Pulse Ox O2 Delivery O2 Flow Rate FiO2 02/09/18 02:45 64 16 127/63 96 Room Air 02/09/18 00:47 36.3 95 18 136/71 99 Room Air General Appearance: WD/WN, no apparent distress Head: normocephalic, atraumatic Eyes: normal inspection, sclerae normal ENT: hearing grossly normal, pharynx normal, + pertinent finding (dry mucosal membranes) Neck: supple, no adenopathy, no JVD Respiratory/Chest: normal breath sounds, no respiratory distress, no accessory muscle use Cardiovascular: regular rate, rhythm, no murmur, normal peripheral pulses Abdomen/GI: normal bowel sounds, non tender, soft, + pertinent finding ( abdomen mildly protuberent - chronic) Back: normal inspection, + left CVA tenderness Extremities/Musculoskelatal: no calf tenderness, no pedal edema Neurologic/Psych: alert, normal mood/affect, oriented x 3 Skin: normal color, warm/dry, no rash Diagnostics Laboratory Results Results Past 24 Hours Test 02/09/18 01:20 02/09/18 02:00 Range/Units White Blood Count 8.80 4.8-10.8 K/uL Red Blood Count 3.05 4.2-5.4 M/uL Hemoglobin 9.9 12.0-16.0 g/dL Hematocrit 30.2 37-47 % Mean Corpuscular Volume 99.0 80-100 fL Mean Corpuscular Hemoglobin 32.5 25-34 pg Mean Corpuscular Hemoglobin Concent 32.8 32-36 g/dl Platelet Count 281 130-400 K/uL Mean Platelet Volume 9.6 7.4-10.4 fL Neutrophils (%) (Auto) 52.5 % Lymphocytes (%) (Auto) 36.8 % Monocytes (%) (Auto) 6.1 % Eosinophils (%) (Auto) 3.2 % Basophils (%) (Auto) 0.8 % Neutrophils # (Auto) 4.62 1.4-6.5 K/uL Lymphocytes # (Auto) 3.24 1.2-3.4 K/uL Monocytes # (Auto) 0.54 0.11-0.59 K/uL Eosinophils # (Auto) 0.28 0-0.5 K/uL Basophils # (Auto) 0.07 0-0.2 K/uL RDW Standard Deviation 54.0 36.4-46.3 fL RDW Coefficient of Variation 15.1 11.5-14.5 % Immature Granulocyte % (Auto) 0.6 % Immature Granulocyte # (Auto) 0.05 0.00-0.02 K/uL Sodium Level 134 136-145 mmol/L Potassium Level 4.2 3.5-5.1 mmol/L Chloride Level 96 98-107 mmol/L Carbon Dioxide Level 25 21-32 mmol/L Anion Gap 13.0 3-11 mmol/L Blood Urea Nitrogen 51 7-18 mg/dl Creatinine 1.59 0.60-1.20 mg/dl Est Creatinine Clear Calc Drug Dose 20.7 ml/min Estimated GFR () 34.7 Estimated GFR (Non- 29.9 BUN/Creatinine Ratio 31.9 10-20 Random Glucose 136 70-99 mg/dl Calcium Level 8.9 8.5-10.1 mg/dl Total Bilirubin 0.2 0.2-1 mg/dl Direct Bilirubin < 0.1 0-0.2 mg/dl Aspartate Amino Transf (AST/SGOT) 14 15-37 U/L Alanine Aminotransferase (ALT/SGPT) 18 12-78 U/L Alkaline Phosphatase 107 45-117 U/L Total Protein 6.5 6.4-8.2 gm/dl Albumin 3.2 3.4-5.0 gm/dl Lipase 306 73-393 U/L Urine Color YELLOW Urine Appearance CLEAR CLEAR Urine pH 5.5 4.5-7.5 Urine Specific [place] 1.010 1.000-1.030 Urine Protein NEG NEG Urine Glucose (UA) NEG NEG Urine Ketones NEG NEG Urine Occult Blood NEG NEG Urine Nitrite POS NEG Urine Bilirubin NEG NEG Urine Urobilinogen NEG NEG Urine Leukocyte Esterase SMALL NEG Urine WBC (Auto) 5-10 0-5 /hpf Urine RBC (Auto) 0-4 0-4 /hpf Urine Hyaline Casts (Auto) 1-5 0-5 /lpf Urine Epithelial Cells (Auto) 20-30 0-5 /lpf Urine Bacteria (Auto) 4+ NEG Microbiology Results 02/09/18 Urine Culture, Received Pending Diagnostic Radiology Stat Rad Radiology results CT ABDOMEN & PELVIS Without Contrast: No definite renal collecting stones or significant interval development of hydronephrosis. Retroperitoneal calcifications are stable from October 14, 2017 without definite ureteral stone. Stable significant stool throughout the colon. No definite high-grade obstruction or free fluid. The unenhanced liver, gallbladder, pancreas, spleen and adrenals are unremarkable. Atherosclerotic calcification of the aorta, stable. The pulmonary nodule involving the right lower lobe continues to increase in size, now measuring 10 mm from 6 mm previous. Pulmonary nodule left lower lobe measures 6 mm Impression Assessment and Plan 82 y/o F Hx CHF, CAD, CMT, DM, HTN, hypothyroidism, chronic anemia, Lung CA - recently discontinued Tarceva 10/20 presents to ED with acute onset left flank pain, consistent with pyelonephritis with EJ Pyelonephritis - Positive UA with definite left CVA tenderness. - Stat rad CT unremarkable. Await final report - Empiric treatment with ceftriaxone. Urine cultures pending - Pain management: scheduled Tylenol 1000mg q8h with PO oxycodone IR 5mg q4h for breakthrough pain - Continue silodosin EJ - likely pre-renal - Gentle IVF NSS @ 75cc/hr - Furosemide and lisinopril held - Trend BMP Chronic systolic CHF / CAD - no exacerbation/ evidence of ACS at present - Continue aspirin, carvedilol. Furosemide and lisinopril held, as above - Monitor volume status Anemia - chronic, Hb is at baseline Hypothyroidism - continue levothyroxine DM - metformin held, placed on ISS with checks ac/hs Lung CA - patient no longer on any treatment VTE ppx - Hep SC Code: DNR Resuscitation Status DNR VTE Prophylaxis Will order VTE Prophylaxis: Yes History Patient seen and examined, chart reviewed, case discussed with Dr. Clarke and I agree with her assessment and plan as documented above. Briefly, patient is an 82yo female with history of HTN, DM, CHF and Lung CA (presently not on treatment , was on Tarciva which was DCd in October d/t intolerance) presenting with acute onset left flank pain, progressive from 11:00 yesterday afternoon. + nausea +urinary urgency with incontinence +dizziness. Patient denies fevers/ chills or sweats. Denies hematuria or foul smelling urine. Patient with recurrent UTIs appx 2/year. She was seen by Urology in the past, some concern for incomplete bladder emptying. She was started on Rapaflo. On physical exam she is afebrile, hemodynamically stable. She is in NAD, HEENT with dry oral mucosa, Heart +S1/S2, regular with occasional skipped beat, no m/r /g, Lungs CTA, abdomen soft, NT/ND, protuberant, +CVA tenderness on the left. Labs reviewed reveal stable normocytic/normochromic anemia, Hg=9.9 and Hct=30.2 , stable hyponatremia Gg=927, mild elevation in BUN=51 and Cr=1.59. UA with + nitrites, LE, blood and bacteria +epithelial cells. CT abdomen with large stool burden, increasing pulmonary nodule, no hydronephrosis, no nephrolithiasis. Patient was administered Dilaudid 0.5g IV and Fentanyl in ER as well as Rocephin, Zofran and NSS Assessment: 82yo female with DM, recurrent UTIs presenting with pyelonephritis 1. Pyelonephritis - +UA, left CVA tenderness. Check urine culture. Pain management with Tylenol scheduled and OxyIR for breakthrough pain. Ceftriaxone. 2. Elevated Cr - most likely secondary to dehydration- NSS at 75mL/hr. Monitor UOP, monitor BUN/Cr and electrolytes. Hold Lasix and Lisinopril 3. Hyponatremia - stable, monitor 4. Anemia - stable. No evidence of blood loss or hemolysis. Monitor Remainder of plan as above Resident Tracking Resident Involvement: Resident Care Provided Care Provided: Adult [facility]
[2018-02-09] MEDS ORDERED: MAGNESIUM HYDROXIDE SUSP 30 ML UDC PO PRN (03:30)
[2018-02-09] MEDS ORDERED: ACETAMINOPHEN 500 MG TAB PO PRN (03:30)
[2018-02-09] MEDS ORDERED: OXYCODONE HCL IR 5 MG TAB (IMMEDIATE RELEASE) PO PRN (03:30)
[2018-02-09] MEDS ORDERED: CARBOHYDRATES FOR HYPOGLYCEMIA PO PRN (03:30)
[2018-02-09] MEDS ORDERED: ONDANSETRON 8 MG TAB PO PRN (03:30)
[2018-02-09] MEDS ORDERED: ALUMINUM/MAGNESIUM/SIMETH (MAALOX MAX) 30 ML UDC PO PRN (03:30)
[2018-02-09 04:00] VITALS: BP 146/68; PULSE 72; TEMP 36.5; O2SAT 98; Ht 162.6 cm; Wt 49.2 kg
[2018-02-09] MEDS ORDERED: SODIUM CHLORIDE 0.9% 1000ML 1,000 ML IV SCH (04:15)
[2018-02-09] MEDS ORDERED: POLYETHYLENE (MIRALAX) 17 GM PACK PO PRN (04:15)
[2018-02-09] MEDS ORDERED: IV FLUIDS COMPLETED PRN (05:00)
[2018-02-09] MEDS: ACETAMINOPHEN 500 MG TAB PO SCH ×3 (05:23→21:27)
[2018-02-09 06:22] LABS: BASO % 0.9 %; BASO ABS # 0.07 K/uL (0-0.2); EOS % 4.3 %; EOS ABS # 0.32 K/uL (0-0.5); HEMATOCRIT 26.6 % (37-47); HEMOGLOBIN 8.9 g/dL (12.0-16.0); IG# 0.05 K/uL (0.00-0.02); LYMPH % 37.3 %; LYMPH ABS # 2.75 K/uL (1.2-3.4); MEAN CELL VOLUME 100.4 fL (80-100); MEAN CORPUSCULAR HEMOGLOBIN 33.6 pg (25-34); MEAN CORPUSCULAR HGB CONC 33.5 g/dl (32-36); MEAN PLATELET VOLUME 9.5 fL (7.4-10.4); MONO % 5.4 %; NEUT % 51.4 %; NEUT ABS # 3.78 K/uL (1.4-6.5); PLATELET COUNT 240 K/uL (130-400); RED CELL DISTRIBUTION WIDTH CV 15.3 % (11.5-14.5); RED CELL DISTRIBUTION WIDTH SD 55.8 fL (36.4-46.3); WHITE BLOOD COUNT 7.37 K/uL (4.8-10.8)
--- NOTE | 2018-02-09 06:44 | DIAGNOSTIC IMAGING REPORT ---
CT SCAN OF THE ABDOMEN AND PELVIS WITHOUT CONTRAST CLINICAL HISTORY: left flank pain radiating to groin COMPARISON STUDY: 10/14/2017 TECHNIQUE: CT scan of the abdomen and pelvis was performed from the lung bases to the proximal femurs. Images are reviewed in the axial, sagittal, and coronal planes. IV contrast was not administered for this examination. A dose lowering technique was utilized adhering to the principles of ALARA. CT DOSE: 370.02 mGy.cm FINDINGS: Lower chest: There is an enlarging 1 cm right lower lobe pulmonary nodule. There is an 8 mm partially solid and groundglass left lower lobe pulmonary nodule. This measured 6 mm the prior study. Liver: The unenhanced liver is normal in size, contour, and attenuation. There is no intrahepatic biliary ductal dilatation. Gallbladder: Unremarkable. Spleen: Normal in size and attenuation. Pancreas: Unremarkable. Adrenal glands: Unremarkable. Kidneys: There is a nonobstructing upper pole right renal calculus. There is no hydronephrosis. No ureteral or bladder calculi are visualized Bowel: There is persistent fecal retention. Clinical correlation in regards to constipation is recommended. There are no transition zones indicate bowel obstruction. There is no evidence of acute appendicitis. There is no evidence of acute diverticulitis. Peritoneum: There is no intraperitoneal free air or abdominal ascites. Vasculature: The abdominal aorta is normal in course and caliber. Adenopathy: None. Pelvic viscera: The bladder, and pelvic viscera are unremarkable. Skeletal structures: No destructive osseous lesions are seen. IMPRESSION: 1. Nonobstructing right renal calculus. No ureteral or bladder calculi identified 2. No evidence of bowel obstruction. No evidence of free air 3. No evidence of acute appendicitis. No evidence of acute diverticulitis 4. Marked fecal retention. Clinical correlation in regards to constipation is recommended 5. Enlarging bilateral pulmonary nodules. The findings are consistent with the patient's known metastatic disease. Electronically signed by: Doug Phan M.D. 02/09/2018 6:42 AM Dictated Date/Time: 02/09/2018 6:37 AM
[2018-02-09 06:57] LABS: CALCIUM 8.5 mg/dl (8.5-10.1); CREATININE 1.37 mg/dl (0.60-1.20); POTASSIUM 4.1 mmol/L (3.5-5.1)
[2018-02-09] MEDS: [UNRECOGNIZED DRUG - OTHER] SCH ×2 (07:22→16:00)
[2018-02-09] MEDS: DOCUSATE SODIUM 100 MG CAP PO SCH ×2 (07:58→21:25)
[2018-02-09] MEDS: CYANOCOBALAMIN 500 MCG TAB (VIT B-12) PO SCH (07:58)
[2018-02-09] MEDS: ASPIRIN 81 MG ECTAB PO SCH (07:58)
[2018-02-09] MEDS: POLYETHYLENE (MIRALAX) 17 GM PACK PO SCH (07:59)
[2018-02-09] MEDS: CARVEDILOL 3.125 MG TAB PO SCH ×2 (07:59→21:25)
[2018-02-09] MEDS: MULTIVITAMIN TAB PO SCH (07:59)
[2018-02-09] MEDS ORDERED: NON-FORMULARY MEDICATION (Cranberry (Vaccinium Macrocarp (Cranberry) 1 CAP) PO SCH (08:00)
[2018-02-09 08:03] VITALS: BP 119/66; PULSE 68; TEMP 36.3; O2SAT 100
[2018-02-09] MEDS: INSULIN ASPART 100 UNITS/ML 3 ML PEN SC SCH ×4 (08:44→21:27)
[2018-02-09] MEDS: HEPARIN SOD 5000 UNIT/0.5 ML CARP SQ SCH ×2 (08:45→21:28)
[2018-02-09 12:04] VITALS: BP 115/65; PULSE 69; TEMP 36.5; O2SAT 98
[2018-02-09] MEDS ORDERED: MINERAL OIL 30 ML UDC PO ONE (16:15)
[2018-02-09 16:22] VITALS: BP 127/80; PULSE 73; TEMP 36.3; O2SAT 100
--- NOTE | 2018-02-09 16:32 | Family Medicine Progress Note ---
Progress Note Date of Service February 09, 2018. Subjective Pt is resting in chair and daughter is at bedside. Endorse a history of frequent urinary tract infections and pyelo in the past, some of which have caused sepsis. Pt says her flank pain is improved now. Is eating and voiding well, otherwise is feeling well and does not report any chest pain or difficulty breathing at this point. Regarding constipation and stool burden on CT, pt states that she has one small bowel movement every day and also takes a probiotic. However she did have an issue with diarrhea while she was on chemo actually for 6 weeks. On review of records, patient is under the care of home hospice for her end stage lung cancer. Home med list does not include any opioid pain medications. There is imodium on it which pt states was left over from when she was on chemo and had persistent diarrhea. ROS See HPI for pertinent positives and negatives. Objective Physical Exam Notes: GENERAL: Awake, alert, well-appearing, in no distress. Thin. HENT: Normocephalic, atraumatic. EYES: Normal conjunctiva. Sclera non-icteric. NECK: Supple. FROM. RESPIRATORY: Clear to auscultation. CARDIAC: Regular rate, normal rhythm. Extremities warm and well perfused. Pulses equal. ABDOMEN: Soft, somewhat distended but non-tender to palpation. No rebound or guarding. LOWER EXTREMITIES: Calves are equal size bilaterally and non-tender. No edema. No discoloration. NEURO: No motor deficits noted. SKIN: No rash or jaundice noted. Assessment and Plan 82 y/o F Hx CHF, CAD, CMT, DM, HTN, hypothyroidism, chronic anemia, Lung CA - recently discontinued Tarceva 10/20 presents to ED with acute onset left flank pain, consistent with pyelonephritis with EJ. Pt is on home hospice care. Abdominal pain 2/2 possible pyelonephritis - Positive UA with definite left CVA tenderness. - CT abd/pelv shows nonobstructing right renal calculus, no evidence of bowel obstruction or free air. No evidence of acute appendicitis or acute diverticulitis. There is marked fecal retention and enlarging bilateral pulmonary nodules, consistent with the patient's known metastatic disease. - Empiric treatment with ceftriaxone. Urine cultures pending - Pain management: scheduled Tylenol 1000mg q8h with PO oxycodone IR 5mg q4h for breakthrough pain - Continue silodosin - Colace BID, miralax qam, Mineral oil for constipation. EJ - likely pre-renal - Furosemide and lisinopril held - Trend BMP - fluids held as patient is tolerating PO. Encourage fluids. Chronic systolic CHF / CAD - no exacerbation/ evidence of ACS at present - Continue aspirin, carvedilol. Furosemide and lisinopril held, as above - Monitor volume status - Fluids held, encourage PO intake. Anemia - chronic, Hb is at baseline Hypothyroidism - continue levothyroxine DM - metformin held, placed on ISS with checks ac/hs Lung CA - patient no longer on any treatment. With home hospice. VTE ppx - Hep SC Code: DNR Dispo: med/surg. Home with hospice. Current Inpatient Medications Medications (Trade) Dose Ordered Sig/Nahed Route Start Time Stop Time Status Last Admin Dose Admin Al Hydrox/Mg Hydrox/Simethicone (Maalox Max Susp) 15 ml Q4H PRN PO 02/09/18 03:30 03/11/18 03:29 Magnesium Hydroxide (Milk Of Magnesia Susp) 30 ml Q6H PRN PO 02/09/18 03:30 03/11/18 03:29 Polyethylene (Miralax Powder Packet) 17 gm DAILY PRN PO 02/09/18 04:15 03/11/18 04:14 Heparin Sodium (Porcine) (Heparin Sq 5000 Unit/0.5ml) 5,000 unit Q12H SQ 02/09/18 09:00 03/11/18 08:59 02/09/18 08:45 5,000 UNIT Aspirin (Ecotrin Tab) 81 mg DAILY PO 02/09/18 08:00 03/11/18 08:59 02/09/18 07:58 81 MG Carvedilol (Coreg Tab) 3.125 mg BID PO 02/09/18 08:00 03/11/18 08:59 02/09/18 07:59 3.125 MG Cyanocobalamin (Vitamin B-12 Tab) 1,000 mcg DAILY PO 02/09/18 08:00 03/11/18 08:59 02/09/18 07:58 1,000 MCG Levothyroxine Sodium (Synthroid Tab) 100 mcg QPM PO 02/09/18 21:00 03/11/18 20:59 Multivitamins (Multivitamin Tab) 1 tab QAM PO 02/09/18 08:00 03/11/18 08:59 02/09/18 07:59 1 TAB Ondansetron HCl (Zofran Tab) 8 mg Q8H PRN PO 02/09/18 03:30 03/11/18 03:29 Miscellaneous Information (Order Awaiting Action) 1 ea QS N/A 02/09/18 08:00 03/11/18 07:59 Ceftriaxone Sodium 1 gm/ Dextrose 50 ml @ 100 mls/hr Q24H IV 02/10/18 06:00 02/20/18 05:59 Glucagon (Glucagon Inj) 1 mg UD PRN SQ 02/09/18 19:15 03/11/18 19:14 Glucose (Glucose 40% Gel) 15-30 GRAMS 15 GRAMS... UD PRN PO 02/09/18 19:15 03/11/18 19:14 Glucose (Glucose Chew Tab) 4-8 Tablets 4 Tabl... UD PRN PO 02/09/18 19:15 03/11/18 19:14 Carbohydrates (Carbohydrates For Hypoglycemia) 15-30 GRAMS 15 grams if BSG 54-69... UD PRN PO 02/09/18 03:30 03/11/18 03:29 Insulin Aspart (novoLOG ASPART) SLIDING SCALE If C... ACHS SC 02/09/18 06:30 03/11/18 06:59 02/09/18 12:52 3 UNITS Oxycodone HCl (Roxicodone Immediate Rel Tab) 5 mg Q4H PRN PO 02/09/18 03:30 02/23/18 03:29 Sodium Chloride 1,000 ml @ 75 mls/hr [id number] IV 02/09/18 04:15 03/11/18 04:14 02/09/18 05:21 75 MLS/HR Acetaminophen (Tylenol Tab) 1,000 mg Q8 PO 02/09/18 06:00 03/11/18 03:29 02/09/18 12:51 1,000 MG Miscellaneous (Iv Fluids Completed) 1 ea PRN PRN N/A 02/09/18 05:00 02/09/19 04:59 Polyethylene (Miralax Powder Packet) 17 gm DAILY PO 02/09/18 08:00 03/11/18 07:59 Docusate Sodium (coLACE CAP) 100 mg BID PO 02/09/18 08:00 03/11/18 07:59 02/09/18 07:58 100 MG Date Time Temp Pulse Resp B/P (MAP) Pulse Ox O2 Delivery O2 Flow Rate FiO2 02/09/18 12:04 36.5 69 20 115/65 (82) 98 Room Air 02/09/18 10:00 Room Air 02/09/18 08:03 36.3 68 22 119/66 (83) 100 Room Air 02/09/18 04:00 36.5 72 16 146/68 98 Room Air 02/09/18 03:38 69 18 121/68 98 02/09/18 02:45 64 16 127/63 96 Room Air 02/09/18 00:47 36.3 95 18 136/71 99 Room Air 02/09/18 05:24 Red Blood Count 2.65, Mean Corpuscular Volume 100.4, Mean Corpuscular Hemoglobin 33.6, Mean Corpuscular Hemoglobin Concent 33.5, Mean Platelet Volume 9.5, Neutrophils (%) (Auto) 51.4, Lymphocytes (%) (Auto) 37.3, Monocytes (%) ( Auto) 5.4, Eosinophils (%) (Auto) 4.3, Basophils (%) (Auto) 0.9, Neutrophils # ( Auto) 3.78, Lymphocytes # (Auto) 2.75, Monocytes # (Auto) 0.40, Eosinophils # ( Auto) 0.32, Basophils # (Auto) 0.07 02/09/18 05:24 Test 02/09/18 01:20 02/09/18 02:00 02/09/18 05:24 02/09/18 11:21 Total Bilirubin 0.2 mg/dl (0.2-1) Direct Bilirubin < 0.1 mg/dl (0-0.2) Aspartate Amino Transf (AST/SGOT) 14 U/L (15-37) Alanine Aminotransferase (ALT/SGPT) 18 U/L (12-78) Alkaline Phosphatase 107 U/L (45-117) Total Protein 6.5 gm/dl (6.4-8.2) Albumin 3.2 gm/dl (3.4-5.0) Lipase 306 U/L (73-393) Urine Color YELLOW Urine Appearance CLEAR (CLEAR) Urine pH 5.5 (4.5-7.5) Urine Specific [place] 1.010 (1.000-1.030) Urine Protein NEG (NEG) Urine Glucose (UA) NEG (NEG) Urine Ketones NEG (NEG) Urine Occult Blood NEG (NEG) Urine Nitrite POS (NEG) Urine Bilirubin NEG (NEG) Urine Urobilinogen NEG (NEG) Urine Leukocyte Esterase SMALL (NEG) Urine WBC (Auto) 5-10 /hpf (0-5) Urine RBC (Auto) 0-4 /hpf (0-4) Urine Hyaline Casts (Auto) 1-5 /lpf (0-5) Urine Epithelial Cells (Auto) 20-30 /lpf (0-5) Urine Bacteria (Auto) 4+ (NEG) White Blood Count 7.37 K/uL (4.8-10.8) Red Blood Count 2.65 M/uL (4.2-5.4) Hemoglobin 8.9 g/dL (12.0-16.0) Hematocrit 26.6 % (37-47) Mean Corpuscular Volume 100.4 fL (80-100) Mean Corpuscular Hemoglobin 33.6 pg (25-34) Mean Corpuscular Hemoglobin Concent 33.5 g/dl (32-36) Platelet Count 240 K/uL (130-400) Mean Platelet Volume 9.5 fL (7.4-10.4) Neutrophils (%) (Auto) 51.4 % Lymphocytes (%) (Auto) 37.3 % Monocytes (%) (Auto) 5.4 % Eosinophils (%) (Auto) 4.3 % Basophils (%) (Auto) 0.9 % Neutrophils # (Auto) 3.78 K/uL (1.4-6.5) Lymphocytes # (Auto) 2.75 K/uL (1.2-3.4) Monocytes # (Auto) 0.40 K/uL (0.11-0.59) Eosinophils # (Auto) 0.32 K/uL (0-0.5) Basophils # (Auto) 0.07 K/uL (0-0.2) RDW Standard Deviation 55.8 fL (36.4-46.3) RDW Coefficient of Variation 15.3 % (11.5-14.5) Immature Granulocyte % (Auto) 0.7 % Immature Granulocyte # (Auto) 0.05 K/uL (0.00-0.02) Red Blood Cell Morphology Unremarkable Prothrombin Time 10.4 SECONDS (9.0-12.0) Prothromb Time International Ratio 1.0 (0.9-1.1) Anion Gap 9.0 mmol/L (3-11) Est Creatinine Clear Calc Drug Dose 24.0 ml/min Estimated GFR () 41.5 Estimated GFR (Non- 35.8 BUN/Creatinine Ratio 34.7 (10-20) Calcium Level 8.5 mg/dl (8.5-10.1) Magnesium Level 1.8 mg/dl (1.8-2.4) Bedside Glucose 178 mg/dl (70-90) Continued [facility] stay due to: other Discharge planning: home with Hospice Resident Tracking Resident Involvement: Resident Care Provided Care Provided: Adult Hospital Medicine Reviewed: Pt Seen/Exam by Me History no more pain in abdomen Constitutional: denies: fever Respiratory: negative: short of breath Cardiovascular: denies chest pain General Appearance: no apparent distress Respiratory: lungs clear, no respiratory distress Cardiovascular: regular rate, rhythm Neurologic/Psychiatric: alert, oriented x 3 Skin Characteristics: warm/dry Assessment/Plan Resident Physician Supervision Note: I independently interviewed and examined the patient and verified the floyd history and physical, reviewed labs and image studies, discussed the case with the resident Dr. Iyer and agree with the findings and care plan.
[2018-02-09] MEDS ORDERED: GLUCAGON FOR INJ 1 MG VIAL SQ PRN (19:15)
[2018-02-09] MEDS ORDERED: GLUCOSE 40% GEL 15 GM TUBE PO PRN (19:15)
[2018-02-09] MEDS ORDERED: GLUCOSE 10 TABS/TUBE PO PRN (19:15)
[2018-02-09 19:18] VITALS: BP 127/64; PULSE 74; TEMP 36.4; O2SAT 97
[2018-02-09] MEDS ORDERED: LEVOTHYROXINE 100 MCG TAB PO SCH (21:00)
[2018-02-09 23:53] VITALS: BP 135/62; PULSE 74; TEMP 36.4; O2SAT 98
[2018-02-10 04:00] VITALS: BP 144/74; PULSE 79; TEMP 36.8; O2SAT 96
[2018-02-10] MEDS: ACETAMINOPHEN 500 MG TAB PO SCH ×2 (05:48→12:55)
[2018-02-10] MEDS ORDERED: CEFTRIAXONE SOD INJ 1 GM in DEXTROSE 5% ADD-VANTAGE 50ML 50 ML IV SCH (06:00)
[2018-02-10 06:06] LABS: CALCIUM 8.9 mg/dl (8.5-10.1); CREATININE 1.58 mg/dl (0.60-1.20)
[2018-02-10 07:31] VITALS: BP 155/81; PULSE 73; TEMP 36.5; O2SAT 98
[2018-02-10] MEDS ORDERED: SODIUM CHLORIDE 0.9% 1000ML 1,000 ML IV ONE (09:30)
[2018-02-10] MEDS: INSULIN ASPART 100 UNITS/ML 3 ML PEN SC SCH ×2 (09:42→12:54)
[2018-02-10] MEDS: HEPARIN SOD 5000 UNIT/0.5 ML CARP SQ SCH (09:46)
[2018-02-10] MEDS: DOCUSATE SODIUM 100 MG CAP PO SCH (09:56)
[2018-02-10] MEDS: CYANOCOBALAMIN 500 MCG TAB (VIT B-12) PO SCH (09:56)
[2018-02-10] MEDS: MULTIVITAMIN TAB PO SCH (09:56)
[2018-02-10] MEDS: ASPIRIN 81 MG ECTAB PO SCH (09:56)
[2018-02-10] MEDS: POLYETHYLENE (MIRALAX) 17 GM PACK PO SCH (09:57)
[2018-02-10] MEDS: CARVEDILOL 3.125 MG TAB PO SCH (09:57)
[2018-02-10] MEDS: [UNRECOGNIZED DRUG - OTHER] SCH ×2 (09:57)
[2018-02-10] MEDS ORDERED: CIPR-255 PO (13:13)
[2018-02-10] MEDS ORDERED: MRLP17 PO (13:13)
--- NOTE | 2018-02-10 13:18 | Discharge Instructions ---
Discharge Instructions Date of Service February 10, 2018. Admission Reason for Admission: Pyelonephritis Discharge Discharge Diagnosis / Problem: Complicated UTI Discharge Goals Goal(s): Decrease discomfort, Improve function, Improve disease control, Learn about illness, Diagnostic testing, Therapeutic intervention Activity Recommendations Activity Limitations: per Instructions/Follow-up section . Instructions / Follow-Up Instructions / Follow-Up Ms. Gambino - sid were admitted due to flank pain and fever and were found to have an infection in your kidneys called pyelonephritis. Please take your antibiotic pill CIPROFLOXACIN twice daily for 5 more days. Please see your family doctor next week to follow up on this hospital stay. I will be sending documentation regarding your stay here to their office. We did hold some of your medications while you were here, but you are safe to start them again on return home. Your abdomen is full of stool -- I recommend you start a miralax regimen daily. You can start with a half cap full daily, and increase by 1/2 cap full every 2 days until you are having 1-2 soft, adequate bowel movements per day. You may require an enema treatment at home. Be Well A [facility] Current Hospital Diet Patient's current hospital diet: AHA Diet (Heart Healthy), Diabetes Type 2 Diet Discharge Diet Recommended Diet: AHA Diet (Heart Healthy), Diabetes Type 2 Diet Pending Studies Studies pending at discharge: no Medical Emergencies . Who to Call and When: Medical Emergencies: If at any time you feel your situation is an emergency, please call 911 immediately. . Non-Emergent Contact Non-Emergency issues call your: Primary Care Provider . . "Provider Documentation" section prepared by Nae Iyer. .
[2018-02-10 13:58] VITALS: BP 155/81; PULSE 73; TEMP 36.5; O2SAT 98
[2018-02-10 15:56] VITALS: BP 108/66; PULSE 75; TEMP 36.5; O2SAT 100
--- NOTE | 2018-02-10 19:39 | Discharge Summary ---
Discharge Summary Date of Service February 10, 2018. Discharge Summary Admission Date: February 09, 2018 at 03:26 Discharge Date: February 10, 2018 Discharge Disposition: Home with services Principal Diagnosis: Complicated UTI, Constipation Problems/Secondary Diagnoses: Hx of systolic CHF, CAD, CMT, DM, HTN, hypothyroidism, chronic anemia, Lung CA - recently discontinued Tarceva 10/20 Immunizations: Have You Had Influenza Vaccine: Yes Influenza Vaccine Date: Aug 13, 2013 History of Tetanus Vaccine?: Unknown History of Pneumococcal: Yes Pneumococcal Date: Aug 13, 2012 History of Hepatitis B Vaccine: No Medication Reconciliation New Medications: Ciprofloxacin Hcl (Cipro) 500 Mg Tab 1 TAB PO BID for 5 Days, #10 TAB Polyethylene (Miralax) 17 Gm Pow 17 GM PO DAILY for 30 Days, #1 UNIT Continued Medications: Acetaminophen (Tylenol) 500 Mg Tab 1000 MG PO UD PRN for Pain, TAB Aspirin (Aspirin Ec) 81 Mg Tab 81 MG PO DAILY Carvedilol (Coreg) 3.125 Mg Tab 3.125 MG PO BID Cranberry (Vaccinium Macrocarp (Cranberry) Unknown Strength Cap 1 CAP PO DAILY Cyanocobalamin (Vitamin B-12) 1,000 Mcg Tab 1000 MCG PO DAILY, TAB Furosemide (Lasix) 20 Mg Tab 1 TAB PO DAILY for 30 Days, #30 TAB 5 Refills Garlic (Garlic) Unknown Strength Cap 1 CAP PO DAILY Levothyroxine Sodium (Levothyroxine Sodium) 100 Mcg Tab 100 MCG PO QPM Lisinopril (Lisinopril) 2.5 Mg Tab 2.5 MG PO QPM, TAB Metformin Hcl (Glucophage) 500 Mg Tab 1000 MG PO BIDM, TAB Multivitamin (Multivitamin) Tab 1 TAB PO QAM Ondansetron Hcl (Zofran) 8 Mg Tab 8 MG PO DIRECTED PRN for Nausea, TAB Silodosin (Rapaflo) 8 Mg Cap 8 MG PO QPM Discontinued Medications: Furosemide (Lasix) 20 Mg Tab 20 MG PO BID, TAB Loperamide-Simethicone (Imodium Multi-Symptom Rel) 1 Tab Tab 1 TAB PO UD PRN for GI Upset Discharge Exam Pt is very comfortable in bed on morning of discharge. Had one small bowel movement overnight. Is eating and otherwise voiding well. Denies any flank pain at this time, is not on any oxygen and is ambulating at baseline. ROS See HPI for pertinent positives and negatives. PHYSICAL EXAM GENERAL: Awake, alert, well-appearing, in no distress. Thin. HENT: Normocephalic, atraumatic. EYES: Normal conjunctiva. Sclera non-icteric. NECK: Supple. FROM. RESPIRATORY: Clear to auscultation. CARDIAC: Regular rate, normal rhythm. Extremities warm and well perfused. Pulses equal. ABDOMEN: Soft, somewhat distended but non-tender to palpation. No rebound or guarding. LOWER EXTREMITIES: Calves are equal size bilaterally and non-tender. No edema. No discoloration. NEURO: No motor deficits noted. SKIN: No rash or jaundice noted. Hospital Course Ms. Gambino is a very pleasant 82 year old female who presented to the ED with complaints of persistent left flank pain that had started a few hours prior. Her past medical history is significant for UTI with sepsis, recurrent pyelonephritis, systolic CHF, CAD, CMT, DM, HTN, hypothyroidism, chronic anemia , and end stage lung CA - recently discontinued Tarceva 10/20. The pain in her flank was severe 6/10 and a/w nausea and vomiting. Imaging of the abdomen showed signs of non-obstructing calculi in the ureters, and also growing pulmonary nodule in the right lower lobe. Her UA was + for nitrites. Her creatinine was also somewhat elevated from baseline, likely due to dehydration. She was given pain and nausea medication as well as fluids in the ED and admitted. In the hospital she was empirically treated with antibiotics and pain medications were continued. Gentle hydration was continued, and pt did well with this. Her pain resolved by morning and urine culture was + for E. coli. Sensitivities are still pending. PO Ciprofloxacin was given. On abd/pelvis CT there did show significant stool burden, and on exam she has a distended, albeit soft, abdomen. Pt states she has a small BM per day. Mineral oil, miralax and colace were given here with little effect. I encouraged pt to continue a miralax regimen. On discharge, pt was sent with isaura, and plan was to return to home hospice care. It was a pleasure taking care of Ms. Alvarez. Total Time Spent: Greater than 30 minutes This includes examination of the patient, discharge planning, medication reconciliation, and communication with other providers. Discharge Instructions Please refer to the electronic Patient Visit Report (Discharge Instructions) for additional information. Additional Copies To Ayo Ho MD; Shaneka Shook MD Resident Tracking Resident Involvement: Resident Care Provided Care Provided: Adult Hospital Medicine Reviewed: Pt Seen/Exam by Me History had small bowel movement so far. no further flank pain Constitutional: denies: fever Respiratory: negative: short of breath Cardiovascular: denies chest pain General Appearance: no apparent distress Respiratory: lungs clear, no respiratory distress Cardiovascular: regular rate, rhythm Neurologic/Psychiatric: alert, oriented x 3 Skin Characteristics: warm/dry Assessment/Plan Resident Physician Supervision Note: I independently interviewed and examined the patient and verified the floyd history and physical, reviewed labs and image studies, discussed the case with the resident Dr. Iyer and agree with the findings and care plan. Time spent in discharge 35 min
== END 2018-02-10 16:30 | disposition home or self-care (01) ==
LOC: C.EDB 00:44 → C.4E 03:26 → ENRESERV 03:33
PROVIDERS: ADMIT Student in an Organized Health Care Education/Training Program; ATTEND Family Medicine
DX: N39.0 Urinary tract infection, site not specified (principal); K59.00 Constipation, unspecified; I50.20 Unspecified systolic (congestive) heart failure; I25.10 Atherosclerotic heart disease of native coronary artery without angina pectoris; E11.9 Type 2 diabetes mellitus without complications; I10 Essential (primary) hypertension; E03.9 Hypothyroidism, unspecified; D64.9 Anemia, unspecified; G60.0 Hereditary motor and sensory neuropathy; Z85.118 Personal history of other malignant neoplasm of bronchus and lung; Z88.0 Allergy status to penicillin; Z88.1 Allergy status to other antibiotic agents; Z79.82 Long term (current) use of aspirin; Z79.899 Other long term (current) drug therapy; Z83.3 Family history of diabetes mellitus; Z82.49 Family history of ischemic heart disease and other diseases of the circulatory system; Z88.8 Allergy status to other drugs, medicaments and biological substances; Z90.89 Acquired absence of other organs; Z98.41 Cataract extraction status, right eye; Z98.42 Cataract extraction status, left eye; Z90.710 Acquired absence of both cervix and uterus

== ENCOUNTER 2019-03-13 10:53 | Observation (INO) ==
--- OUTSIDE RECORDS SUMMARY | 2019-03-13 10:55 | External Medical Summary | Continuity of Care Document ---
:1935 Author Name Janki Taveras, Provider Address Unavailable Unavailable , Care Team Providers Name Role Phone Zach Harvey Unavailable [email or web address], [email or web address] Taveras, JASWINDER Deleon Unavailable Unavailable Unavailable Unavailable Unavailable Assessments Assessed Problems:Hospice care patient Problems Solitary pulmonary nodule (793.11) (R91.1) Hypercholesterolemia (272.0) (E78.00) Iron deficiency anemia (280.9) (D50.9) UTI (urinary tract infection) (599.0) (N39.0) Hospice care patient (V66.7) (Z51.5) CMT (Ufjvwbj-Ncxkt-Pjetp disease) (356.1) (G60.0) 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) Depression (311) (F32.9) Chronic renal insufficiency (585.9) (N18.9) 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) Chronic sinusitis (473.9) (J32.9) Seborrheic dermatitis (690.10) (L21.9) Tinea corporis (110.5) (B35.4) LBBB (left bundle branch block) (426.3) (I44.7) Mitral insufficiency (424.0) (I34.0) Cath Stent Placement Chronic lower back pain (724.2) (M54.5) Insomnia (780.52) (G47.00) Fine motor impairment (V49.89) (R29.818) Diabetic peripheral neuropathy (250.60) (E11.42) 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) Cardiomyopathy, ischemic (414.8) (I25.5) Diarrhea (787.91) (R19.7) Nausea and vomiting (787.01) (R11.2) Hypothyroidism (244.9) (E03.9) Need for pneumococcal vaccination (V03.82) (Z23) Influenza vaccine needed (V04.81) (Z23) Cognitive disorder (294.9) (F09) Adenocarcinoma of left lung (162.9) (C34.92) Hypertension (401.9) (I10) CAD (coronary artery disease) (414.00) (I25.10) Incomplete bladder emptying (788.21) (R33.9) Hyponatremia (276.1) (E87.1) Allergies and Adverse Reactions Augmentin TABS (Allergy) Reaction: Hives Penicillins (Allergy) Reaction: Hives traMADol HCl TABS (Allergy) Reaction: Vo miting Medications Lisinopril 2.5 MG Oral Tablet; take 1 tablet by mouth once daily Darcy Shook Start: 05-Oct-2018 Quantity: 90 Refills: 1 Clotrimazole-Betamethasone 1-0.05 % Exte rnal Cream; APPLY AND RUB IN A THIN FILM TO AFFECTED AREA ON THE LEFT LOWER LEG TWICE DAILY.(AM AND PM). LUCIE Sagastume Start: 31-Mar-2017 Quantity: 1 15 GM Tube Refills: 3 Vitamin B12 1000 MCG Oral Tablet Extende d Release; TAKE 1 TABLET DAILY DIRECTED. Start: 13-Feb-2018 Refills: 0 Cranberry 400 MG Oral Capsule; Take 1 tablet daily Start: 31-Aug-2017 Refills: 0 Acetaminophen 500 MG Oral Tablet; TAKE 2 TABLETS EVERY 8 MARGI RS NEEDED. Start: 31-Aug-2017 Refills: 0 Ferrous Sulfate 325 (65 Fe) MG Oral Tablet; TAKE 1 TAB LET DAILY DIRECTED. LUCIE Sagastume Start: 31-Jan-2015 Refills: 0 Furosemide 20 MG Oral Tablet; TAKE 1 TABLET DAILY. LILLIE Sagastume NP Start: 09-Apr-2015 Quantity: 90 Refills: 1 Carvedilol 3.125 MG Oral Tablet; take 1 tablet by mout h twice a day with meals Darcy Shook Start: 09-Oct-2018 Quantity: 60 Refills: 5 Aspirin 81 MG TABS; Take 1 tablet daily Refills: 0 Multiple Vitamin TABS; TAKE 1 TABLET DAILY. Refills: 0 Levothyroxine Sodium 112 MCG Oral Tablet; TAKE 1 TABLE T BY MOUTH DAILY Darcy Shook Start: 05-Jan-2019 Quantity: 30 Refills: 2 metFORMIN HCl - 500 MG Oral Tablet; take 2 tablets by mouth twice a day Darcy Shook Start: 05-Oct-2018 Quantity: 360 Refills: 1 FreeStyle Blanca Sensor System; USE DIRECTED Darcy Shook Start: 30-Nov-2018 Quantity: 3 Refills: 11 FreeStyle Blanca [place] Device; USE DIRECTED Darcy Shook Start: 30-Nov-2018 Quantity: 1 Refills: 0 Imodium Multi-Symptom Relief 2-125 MG Or al Tablet; 1 tab oral every 3 hours as needed for: diarrhea Start: 04-Oct-2018 Refills: 0 Famotidine 20 MG Oral Tablet; 20 mg oral daily Start: 04-Oct-2018 Refills: 0 Ondansetron HCl - 4 MG Oral Tablet; 4 mg oral every six hours as needed for: nausea and vomiting Start: 04-Oct-2018 Refills: 0 Senokot 8.6 MG Oral Tablet; 8.6 mg oral at bedtime Start: 04-Oct-2018 Refills: 0 Acetaminophen-Codeine #3 300-30 MG Oral Tablet; 1 tab oral e very 6 hours Start: 04-Oct-2018 Refills: 0 Colace 100 MG Oral Capsule; 100 mg oral twice a day Start: 04-Oct-2018 Refills: 0 Procedures History of Tonsillectomy Status: Complet ed History of Transcath Placement Of Intrathoracic Status: Completed 02-Sep-2014 0:00 Carotid Artery Stent History of Neuroplasty Median Nerve At Carpal Status: Completed 09-Dec-2015 0:00 Tunnel History of Hysterectomy Status: Complete d History of Flexible Bronchography With S tatus: Completed Endobrachial Ultrasound History of Lung Lobectomy Status: Comple porfirio Immunizations Zostavax 61680 UNT/0.65ML Subcutaneous Solution Reconstitute d On: Apr-2009 Fluzone High-Dose Intramuscular Suspension On: 28-Jul-2013 Lot #: [id number], [employer] Influenza On: 03-Jul-2014 Influenza On: 10-Jun-2015 13:14 Lot #: [id number], [employer] Prevnar 13 Intramuscular Suspension On: 06-Feb-2016 8:35 Lot #: [id number], [place] Fluzone High-Dose Intramuscular Suspension On: 29-Aug-2017 Fluzone High-Dose 0.5 ML Intramuscular Suspension Pref illed Syringe On: 14-Jul-2018 9:30 Lot #: [id number], [employer] Family History Father Family history of Cerebral Artery Occlusion With Cereb ral Infarction Status: Active Family history of cardiac disorder (V17.49) (Z82.49) Status: Active Mother Family history of Diabetes Mellitus (V18.0) Status: Active Family history of cardiac disorder (V17.49) (Z82.49) Status: Active Social History - Smoking Status Former smoker Plan of Treatment Planned Observations Planned Goals not documented Results No Known Results Results not documented Encounters Appointment; Zach Sagastume CRNP 14-Jul-2018 8:40 Encounter Diagnosis: Problem not documented Appointment; Jaswinder Shook M.D. 07-Oct-2017 8:00 Encounter Diagnosis: Problem not documented Appointment; Paras Bolton M.D. 19-Jul-2017 10:15 Encounter Diagnosis: Problem not documented Appointment; Zach Sagastume CRNP 31-Mar-2017 9:40 Encounter Diagnosis: Problem not documented
[2019-03-13 11:52] LABS: Appearance Urine Clear (Clear); Bacteria Urine Automated 3+ (Negative); Bilirubin Urine Negative (Negative); Blood Urine Negative (Negative); Color Urine Yellow; Glucose Urine UA Negative (Negative); Ketones Urine Trace (Negative); Leukocyte Esterase Urine 1+ (Negative); Nitrite Urine Negative (Negative); RBC Urine Automated 0-4 /hpf (0-4); Specific Gravity Urine 1.013 (1.000-1.030); Urobilinogen Urine Negative (Negative); pH Urine 7.5 (4.5-7.5)
[2019-03-13 11:55] LABS: Protein Urine Negative (Negative)
[2019-03-13 12:04] LABS: Basophils # (auto) 0.02 K/uL (0-0.2); Basophils % (auto) 0.2 %; Hematocrit (blood only) 28.2 % (37-47); Hemoglobin 9.3 g/dL (12.0-16.0); Immature Granulocytes # (auto) 0.11 K/uL (0.00-0.02); Immature Granulocytes % (auto) 1.1 %; Lymphocytes # (auto) 1.05 K/uL (1.2-3.4); Lymphocytes % (auto) 10.5 %; Mean Corpuscular Volume 89.2 fL (80-100); Mean Platelet Volume 8.4 fL (7.4-10.4); Monocytes # (auto) 0.55 K/uL (0.11-0.59); Monocytes % (auto) 5.5 %; Neutrophils # (auto) 8.15 K/uL (1.4-6.5); Neutrophils % (auto) 81.7 %; Nucleated RBC # (auto) 0.02 K/uL (0-0); Nucleated RBC % (auto) 0.2 %; Platelet Count 449 K/uL (130-400); RDW Coefficient of Variation 16.4 % (11.5-14.5); RDW Standard Deviation 53.6 fL (36.4-46.3); Red Blood Count 3.16 M/uL (4.2-5.4); White Blood Count 9.98 K/uL (4.8-10.8)
[2019-03-13] MEDS ORDERED: cefTRIAXone SODIUM 1,000 MG/50 ML BAG IV STA (12:05)
[2019-03-13 12:26] LABS: Albumin Level 2.5 gm/dl (3.4-5.0); BUN Creatinine Ratio 17.6 (10-20); Calcium 8.9 mg/dl (8.5-10.1); Creatinine Clr Calc Pharmacy 37.3 ml/min; Est GFR (African American) 64.2; Est GFR (Non-African American) 55.4; Potassium 4.4 mmol/L (3.5-5.1)
[2019-03-13 12:29] LABS: Albumin Globulin Ratio 0.7 (0.9-2); Bilirubin,Total 0.3 mg/dl (0.2-1); Globulin 3.7 gm/dl (2.5-4.0); Total Protein 6.2 gm/dl (6.4-8.2)
[2019-03-13] MEDS ORDERED: IOVERSOL 100ml IV PRN (12:56)
--- NOTE | 2019-03-13 13:35 | CT Scan Report ---
CT OF THE ABDOMEN AND PELVIS WITH CONTRAST CLINICAL HISTORY: Diffuse abdominal pain. Non-small cell lung cancer. COMPARISON STUDY: CT of the abdomen and pelvis September 30, 2018. TECHNIQUE: Following IV administration of mL of Optiray-320, axial images of the abdomen and pelv is were obtained from the lung bases to the proximal femurs. Images were reviewed in the axial, sagit giovanni, and coronal planes. IV contrast was administered without complication. Automated exposure contr ol was utilized for the study. A dose lowering technique was utilized adhering to the principles of ALARA. CT DOSE: 255.65 mGy.cm FINDINGS: Imaged portions of the lower chest demonstrate interval development of small bilateral pleu ral effusions with pleural implants. Innumerable pulmonary nodules have increased in size and number since CT of September 30, 2018. Index right lower lobe lesion measures 1.7 cm. There is been interval development of multiple bilobar hepatic lesions which measure up to 3.5 cm. The spleen, adrenal gland s, kidneys and pancreas are unremarkable. There is extensive plaque of the abdominal aorta. The bladd er is moderately distended. A Myers balloon is in place. There is trace fluid within the pelvis. No p neumatosis, free air or portal venous gas is present. There is moderate stool within the right colon. There is no evidence for a bowel obstruction. There has been interval development of numerous skelet al lesions since CT of September 30, 2018 with a pathologic fracture involving the greater trochanter of the left femur. There is also a mild pathologic fracture of the L4 vertebral body. Evaluation for epidural extension is suboptimal given CT technique. Multilevel degenerative changes within the lumba r spine are noted. IMPRESSION: 1. Significant progression of extensive metastatic disease since CT of September 30, 2018. Progression of pulmonary metastases with interval development of liver and skeletal metastases with pathologic f ractures of the greater trochanter of the left femur and L4 vertebral body. 2. Interval development of small bilateral malignant pleural effusions. 3. Moderate bladder distention. Myers balloon in place. Electronically signed by: Enrike Romo M.D. 03/13/2019 1:34 PM
--- NOTE | 2019-03-13 14:58 | History & Physical Report ---
Date of Service March 13, 2019 Assessment & Plan (1) UTI (urinary tract infection): with urinary retention UA +for leuk est, neg nitrites Cx pending Started on ceftriaxone in the ED, will continue and can transition to PO for d/c (2) Chronic systolic heart failure: continue home meds (3) Hypothyroidism: continue home meds (4) HTN (hypertension): continue home meds (5) Heart disease: s/p stents x5 yrs 81mg aspirin (6) Diabetes: Metformin only at home Holding due to IV contrast use SSI PRN (7) Lung mass: with mets CTAP noted for new mets currently on hospice dexamethasone QD is for pain related to cancer (8) DVT prophylaxis: SCDs History of Present Illness Primary Care Provider: Zach Sagastume, III, VERIFICATION ENGINEER 83 y/o F c/o urinary retention and abd pain. Pt has felt generally unwell with nausea and diarrhea the last two days. She has not taken her medications today or yesterday due to this. She was urinating yesterday without issue, however this AM she noted that she had suprapubic pain radiating to her back and was unable to urinate. They came to the ED for eval for this. Pt denies fever, SOB, chest pain, LE pain or swelling. Myers was placed in the ED and pt was given ceftriaxone for possible UTI. She no longer has abd pain. ED was planning for d/c to home with PO abx, however pt's family contacted hospice who recommended she be kept for overnight observation in the hospital. Both ED physician and CM discussed obs status with pt and family and they are in agreement with this plan. I also discussed this plan. Allergies Allergy/AdvReac Type Severity Reaction Status Date / Time amoxicillin Allergy Severe hives Verified 03/13/19 11:18 clavulanic acid Allergy Severe hives Verified 03/13/19 11:18 Penicillins Allergy Unknown HIVES Verified 03/13/19 11:18 methimazole AdvReac Unknown SEVERE Unverified 03/13/19 11:18 NAUSEA tramadol AdvReac Unknown NAUSEA Unverified 03/13/19 11:18 Home Medications Home Medications Medication Instructions Recorded Confirmed Type Imodium Multi-Symptom Relief 1 tab PO Q3H PRN 09/30/18 03/13/19 History acetaminophen [Tylenol Extra 1,000 mg PO UD PRN 09/30/18 03/13/19 History Strength] aspirin [Aspir-81] 81 mg PO DAILY 09/30/18 03/13/19 History carvedilol 3.125 mg PO BID 09/30/18 03/13/19 History cyanocobalamin (vitamin B-12) 1,000 mcg PO DAILY 09/30/18 03/13/19 History [Vitamin B-12] docusate sodium [Colace] 100 mg PO BID #60 cap 09/30/18 03/13/19 Rx furosemide 20 mg PO DAILY 09/30/18 03/13/19 History lisinopril 2.5 mg PO HS 09/30/18 03/13/19 History metformin 1,000 mg PO BIDM 09/30/18 03/13/19 History multivitamin 1 tab PO DAILY 09/30/18 03/13/19 History ondansetron HCl 8 mg PO UD PRN 09/30/18 03/13/19 History Lactobacillus rhamnosus GG 1 cap PO DAILY 03/13/19 03/13/19 History [Culturelle] dexamethasone 1 mg PO DAILY 03/13/19 03/13/19 History fluoxetine 20 mg PO DAILY 03/13/19 03/13/19 History levothyroxine 100 mcg PO DAILY 03/13/19 03/13/19 History Past Med/Surg History Medical History HTN (hypertension) Heart disease CMT (Lpidtww-Tsthl-Fryzb disease) (Chronic) Diabetes (Chronic) Family History Other Diabetes Heart disease Hypertension Social History Preferred Language: Marshallese Communication Ability: Effective Beliefs That Will Affect Care: None Current Living Situation: Alone Feels Safe at Home: Yes Smoking Status: Never smoker Second Hand Exposure: No Hx Alcohol Use: No Hx Substance Use: No Review of Systems Review of Systems: Pertinent positives and negatives reviewed in HPI--all others negative Physical Exam Constitutional: WD/WN, vitals as above Eyes: normal visual [place] by confrontation and + anicteric sclerae Neck: normal visual inspection and trachea midline Respiratory: normal respiratory effort, lungs clear to auscultation Cardiovascular: Rate/Rhythm: regular rate and regular rhythm Gastrointestinal (Abdomen): Inspection/Auscultation: abdomen not distended Percussion/Palpation: abdomen soft; abdomen nontender Musculoskeletal: Head/Neck/Chest: normocephalic and head atraumatic negative for edema, peripheral pulses intact Skin: no rashes, warm and dry Neurologic: awake; not confused Speech / Cognition: normal speech Psychiatric: A+Ox3, euthymic affect Results & Data Vital Signs (Past 12 Hours) Vital Signs Temp Pulse Pulse Resp BP BP Pulse Ox 03/13/19 14:30 92 H 20 131/80 97 03/13/19 13:45 97 H 16 123/69 95 03/13/19 12:44 96 H 16 126/66 93 03/13/19 11:41 101 H 12 130/81 92 03/13/19 11:35 93 03/13/19 11:03 37.2 C 105 H 17 149/84 H 86 L Diagnostic Findings CTAP: 1. Significant progression of extensive metastatic disease since CT of September 30, 2018. Progression of pulmonary metastases with interval development of liver and skeletal metastases with pathologic fractures of the greater trochanter of the left femur and L4 vertebral body. 2. Interval development of small bilateral malignant pleural effusions. 3. Moderate bladder distention. Myers balloon in place. Code Status & VTE Plan Code Status DNR/DNI per POLST Pt is for abx, but no IVF or artificial nutrition VTE Prophylaxis Plan VTE Prophylaxis will be ordered: Yes
[2019-03-13] MEDS ORDERED: CARBOHYDRATES FOR HYPOGLYCEMIA PO PRN (17:16)
[2019-03-13] MEDS ORDERED: ONDANSETRON INJ 2 MG/ML 2 ML VIAL IV PRN (17:16)
[2019-03-13] MEDS ORDERED: GLUCOSE 10 TABS/TUBE PO PRN (17:16)
[2019-03-13] MEDS ORDERED: MAGNESIUM HYDROXIDE SUSP 30 ML UDC PO PRN (17:16)
[2019-03-13] MEDS ORDERED: ACETAMINOPHEN 325 MG TAB PO PRN (17:16)
[2019-03-13] MEDS ORDERED: DEXTROSE 50% 50 ML SYRINGE IV PRN (17:16)
[2019-03-13] MEDS ORDERED: GLUCAGON FOR INJ 1 MG VIAL SQ PRN (17:16)
[2019-03-13] MEDS ORDERED: GLUCOSE 40% GEL 15 GM TUBE PO PRN (17:16)
[2019-03-13] MEDS: INSULIN ASPART 100 UNITS/ML 3 ML PEN SC SCH ×2 (18:20→21:20)
[2019-03-14] MEDS: INSULIN ASPART 100 UNITS/ML 3 ML PEN SC SCH ×2 (08:36→13:26)
[2019-03-14] MEDS ORDERED: cefTRIAXone SODIUM 1,000 MG in DEXTROSE 5% 50 ML IV SCH (12:00)
--- NOTE | 2019-03-14 15:18 | Emergency Department Note ---
Entered by Holli Mathew acting as a scribe for History of Present Illness General Chief complaint: Abdominal Pain Time Seen by Provider: 03/13/19 11:03 Source: family Mode of arrival: EMS Limitations: no limitations History of Present Illness Provider complaint: urinary sx Onset (ago): day(s) (yesterday) Location: pelvis Pain Consistency: + other (persistent) Quality: + other (retention) Associated symptoms: + loss of appetite, + nausea/vomiting and + other (pelvic pain) Treatments prior to arrival: none The patient is an 83 year old female who presents to the ER via EMS with complaints of persistent urinary symptoms that began yesterday. The patient�s daughter at bedside report that the patient is in hospice care and that she has not eaten or drank anything since yesterday. They state that the patient has been complaining of pelvic pain and that she has not urinated today. They also note that she has been nauseous for 2 days. They explain that the patient does have a history of UTIs as well as urinary retention. They deny any treatments prior to arrival. Home Medications Home Medications Medication Instructions Recorded Confirmed Type Imodium Multi-Symptom Relief 1 tab PO Q3H PRN 09/30/18 03/13/19 History acetaminophen [Tylenol Extra 1,000 mg PO UD PRN 09/30/18 03/13/19 History Strength] aspirin [Aspir-81] 81 mg PO DAILY 09/30/18 03/13/19 History carvedilol 3.125 mg PO BID 09/30/18 03/13/19 History cyanocobalamin (vitamin B-12) 1,000 mcg PO DAILY 09/30/18 03/13/19 History [Vitamin B-12] docusate sodium [Colace] 100 mg PO BID #60 cap 09/30/18 03/13/19 Rx furosemide 20 mg PO DAILY 09/30/18 03/13/19 History lisinopril 2.5 mg PO HS 09/30/18 03/13/19 History metformin 1,000 mg PO BIDM 09/30/18 03/13/19 History multivitamin 1 tab PO DAILY 09/30/18 03/13/19 History ondansetron HCl 8 mg PO UD PRN 09/30/18 03/13/19 History Culturelle 1 cap PO DAILY 03/13/19 03/13/19 History dexamethasone 1 mg PO DAILY 03/13/19 03/13/19 History fluoxetine 20 mg PO DAILY 03/13/19 03/13/19 History levothyroxine 100 mcg PO DAILY 03/13/19 03/13/19 History cefdinir 300 mg PO BID 6 Days #12 cap 03/14/19 Rx Allergies Allergy/AdvReac Type Severity Reaction Status Date / Time amoxicillin Allergy Severe hives Verified 03/13/19 11:18 clavulanic acid Allergy Severe hives Verified 03/13/19 11:18 Penicillins Allergy Unknown HIVES Verified 03/13/19 11:18 methimazole AdvReac Unknown SEVERE Unverified 03/13/19 11:18 NAUSEA tramadol AdvReac Unknown NAUSEA Unverified 03/13/19 11:18 Past Med/Surg History Medical History HTN (hypertension) Heart disease CMT (Upyacmw-Anubl-Jzaon disease) (Chronic) Diabetes (Chronic) Family History Other Diabetes Heart disease Hypertension Social History Preferred Language: Swiss Communication Ability: Effective Paraprofessional Aide Required: No Beliefs That Will Affect Care: None Current Living Situation: Family Other Information That Helps Us Care for You: No Feels Safe at Home: Yes Safety Concerns: Feels Safe At This Time Smoking Status: Former smoker Second Hand Exposure: No Hx Alcohol Use: No Hx Substance Use: No Review of Systems See HPI for pertinent positives & negatives. and A total of 10 systems reviewed and were otherwise negative Physical Exam Vital Signs Vital Signs - 24 hr 03/13/19 11:03 03/13/19 11:35 03/13/19 11:41 Temperature 99.0 F Temperature Source Oral Sepsis Recent Fever Within 48 Hours No Sepsis New/Unexplained Change in Mental Status No Sepsis Action Taken by Nursing No Action Required Pulse Rate 105 H Pulse Rate [Left] 101 H Respiratory Rate 17 12 Respiratory Effort / Characteristics Spontaneous Non-Labored Spontaneous Respiratory Depth Normal Blood Pressure 149/84 H Blood Pressure [Right Arm] 130/81 Blood Pressure Mean 105 Blood Pressure Mean [Right Arm] 97 Blood Pressure Position Lying Blood Pressure Position [Right Arm] Lying Pulse Oximetry 86 L 93 92 Oxygen Delivery Method Room Air Nasal Cannula Nasal Cannula Oxygen Flow Rate 2 2 03/13/19 12:44 Temperature Temperature Source Sepsis Recent Fever Within 48 Hours Sepsis New/Unexplained Change in Mental Status Sepsis Action Taken by Nursing Pulse Rate Pulse Rate [Left] 96 H Respiratory Rate 16 Respiratory Effort / Characteristics Non-Labored Spontaneous Respiratory Depth Blood Pressure Blood Pressure [Right Arm] 126/66 Blood Pressure Mean Blood Pressure Mean [Right Arm] 86 Blood Pressure Position Blood Pressure Position [Right Arm] Lying Pulse Oximetry 93 Oxygen Delivery Method Nasal Cannula Oxygen Flow Rate 2 GENERAL: Awake, alert, well-appearing, in no acute distress HENT: Normocephalic, atraumatic. Oropharynx unremarkable. EYES: Normal conjunctiva. Sclera non-icteric. NECK: Supple. No nuchal rigidity. FROM. No JVD. RESPIRATORY: Clear to auscultation. CARDIAC: Regular rate, normal rhythm. Extremities warm and well perfused. Pulses equal. ABDOMEN: Soft. Distended and tender in the suprapubic region . No rebound or guarding. No masses. RECTAL: Deferred. MUSCULOSKELETAL: Chest examination reveals no tenderness. The back is symmetrical on inspection without obvious abnormality. There is no CVA tenderness to palpation. No joint edema. LOWER EXTREMITIES: Calves are equal size bilaterally and non-tender. No edema. No discoloration. NEURO: Normal sensorium. No sensory or motor deficits noted. SKIN: No rash or jaundice noted. Course 1106: Past medical records reviewed. The patient was evaluated in room A4B. A complete history and physical examination was performed. Administered Medications Discontinued Medications Ceftriaxone Sodium (Rocephin) 1,000 mg in 50 mls @ 100 mls/hr IV NOW STA Stop: 03/13/19 12:34 Last Infusion: 03/13/19 12:44 Dose: 0 mls/hr Documented by: [id number] Admin: 03/13/19 12:11 Dose: 100 mls/hr Documented by: [id number] Ceftriaxone Sodium 1,000 mg/ (Dextrose) 50 mls @ 100 mls/hr IV Q24H [facility]; Protocol Stop: 03/19/19 11:59 Last Infusion: 03/14/19 14:04 Dose: 0 mls/hr Documented by: [id number] Admin: 03/14/19 13:23 Dose: 100 mls/hr Documented by: [id number] Insulin Aspart (Novolog Flexpen) 0 units SC ACHS SOTERO Stop: 04/12/19 20:59 Last Admin: 03/14/19 13:26 Dose: 7 units Documented by: [id number] Cosigned by: [id number] Admin: 03/14/19 08:36 Dose: 3 units Documented by: [id number] Cosigned by: [id number] Admin: 03/13/19 21:20 Dose: 2 units Documented by: [id number] Cosigned by: [id number] Admin: 03/13/19 18:20 Dose: 4 units Documented by: [id number] Cosigned by: [id number] Ioversol (Optiray 320 100ml) 94 ml IV ONCE PRN PRN Reason: Interaction Checking Stop: 03/17/19 12:55 Last Admin: 03/13/19 12:56 Dose: 94 ml Documented by: [id number] Medical Decision Making Differential Diagnosis Differential diagnosis includes: gastritis, peptic ulcer disease, GERD, gallbladder disease, pancreatitis, small bowel obstruction, acute coronary syndrome, pericarditis, ischemic bowel, irritable bowel disease, irritable bowel syndrome, appendicitis, diverticulitis, malignancy, hernia, urinary tract infection, torsion, perforation, trauma, and infectious. Medical Records Attestation: I reviewed the patient's medical records. Home Medications Current Medication List: was personally reviewed by me Laboratory Data Attestation: I reviewed the patient's lab results. Result diagrams: 03/13/19 11:56 03/13/19 11:56 Lab Results 03/13/19 03/13/19 03/13/19 Range/Units 11:34 11:56 11:56 WBC 9.98 (4.8-10.8) K/uL RBC 3.16 L (4.2-5.4) M/uL Hgb 9.3 L (12.0-16.0) g/dL Hct 28.2 L (37-47) % MCV 89.2 (80-100) fL MCH 29.4 (25-34) pg MCHC 33.0 (32-36) g/dL RDW Std Deviation 53.6 H (36.4-46.3) fL RDW Coeff of Alberto 16.4 H (11.5-14.5) % Plt Count 449 H (130-400) K/uL MPV 8.4 (7.4-10.4) fL Immature Gran % (Auto) 1.1 % Neut % (Auto) 81.7 % Lymph % (Auto) 10.5 % Marshall % (Auto) 5.5 % Eos % (Auto) 1.0 % Baso % (Auto) 0.2 % Immature Gran # (Auto) 0.11 H (0.00-0.02) K/uL Neut # (Auto) 8.15 H (1.4-6.5) K/uL Lymph # (Auto) 1.05 L (1.2-3.4) K/uL Marshall # (Auto) 0.55 (0.11-0.59) K/uL Eos # (Auto) 0.10 (0-0.5) K/uL Baso # (Auto) 0.02 (0-0.2) K/uL Absolute Nucleated RBC 0.02 H (0-0) K/uL Nucleated RBC % (auto) 0.2 % Sodium 131 L (136-145) mmol/L Potassium 4.4 (3.5-5.1) mmol/L Chloride 97 L (98-107) mmol/L Carbon Dioxide 25 (21-32) mmol/L Anion Gap 9.0 (3-11) BUN 17 (7-18) mg/dl Creatinine 0.95 (0.6-1.2) mg/dl Est Cr Clr Drug Dosing 37.3 ml/min Est GFR ( Amer) 64.2 Est GFR (Non-Af Amer) 55.4 BUN/Creatinine Ratio 17.6 (10-20) Glucose 184 H (70-99) mg/dl Calcium 8.9 (8.5-10.1) mg/dl Total Bilirubin 0.3 (0.2-1) mg/dl AST 16 (15-37) U/L ALT 10 L (12-78) U/L Alkaline Phosphatase 121 H (45-117) U/L Total Protein 6.2 L (6.4-8.2) gm/dl Albumin 2.5 L (3.4-5.0) gm/dl Globulin 3.7 (2.5-4.0) gm/dl Albumin/Globulin Ratio 0.7 L (0.9-2) Lipase 42 L (73-393) U/L Urine Color Yellow Urine Appearance Clear (Clear) Urine pH 7.5 (4.5-7.5) Ur Specific [place] 1.013 (1.000-1.030) Urine Protein Negative (Negative) Urine Glucose (UA) Negative (Negative) Urine Ketones Trace H (Negative) Urine Blood Negative (Negative) Urine Nitrite Negative (Negative) Urine Bilirubin Negative (Negative) Urine Urobilinogen Negative (Negative) Ur Leukocyte Esterase 1+ H (Negative) Urine WBC (Auto) 10-30 H (0-5) /hpf Urine RBC (Auto) 0-4 (0-4) /hpf U Hyaline Cast (Auto) 5-10 H (0-5) /lpf U Epithel Cells (Auto) 5-10 H (0-5) /lpf Urine Bacteria (Auto) 3+ H (Negative) Imaging Data Radiologist's Impression: Radiology results as stated below per my review and the radiologist's interpretation: CT OF THE ABDOMEN AND PELVIS WITH CONTRAST CLINICAL HISTORY: Diffuse abdominal pain. Non-small cell lung cancer. COMPARISON STUDY: CT of the abdomen and pelvis September 30, 2018. TECHNIQUE: Following IV administration of mL of Optiray-320, axial images of the abdomen and pelvis were obtained from the lung bases to the proximal femurs. Images were reviewed in the axial, sagittal, and coronal planes. IV contrast was administered without complication. Automated exposure control was utilized for the study. A dose lowering technique was utilized adhering to the principles of ALARA. CT DOSE: 255.65 mGy.cm FINDINGS: Imaged portions of the lower chest demonstrate interval development of small bilateral pleural effusions with pleural implants. Innumerable pulmonary nodules have increased in size and number since CT of September 30, 2018. Index right lower lobe lesion measures 1.7 cm. There is been interval development of multiple bilobar hepatic lesions which measure up to 3.5 cm. The spleen, adrenal glands, kidneys and pancreas are unremarkable. There is extensive plaque of the abdominal aorta. The bladder is moderately distended. A Myers balloon is in place. There is trace fluid within the pelvis. No pneumatosis, free air or portal venous gas is present. There is moderate stool within the right colon. There is no evidence for a bowel obstruction. There has been interval development of numerous skeletal lesions since CT of September 30, 2018 with a pathologic fracture involving the greater trochanter of the left femur. There is also a mild pathologic fracture of the L4 vertebral body. Evaluation for epidural extension is suboptimal given CT technique. Multilevel degenerative changes within the lumbar spine are noted. IMPRESSION: 1. Significant progression of extensive metastatic disease since CT of September 30, 2018. Progression of pulmonary metastases with interval development of liver and skeletal metastases with pathologic fractures of the greater trochanter of the left femur and L4 vertebral body. 2. Interval development of small bilateral malignant pleural effusions. 3. Moderate bladder distention. Myers balloon in place. Electronically signed by: Enrike Romo M.D. 03/13/2019 1:34 PM Blood Pressure Blood Pressure Findings: Normal blood pressure Blood Pressure Disposition: did not require urgent referral MDM Narrative This is an 83-year-old female who presents emergency department with suprapubic bloating and tenderness in the area. Both patient and family feel that the patient is in urinary retention. Because of this a Myers catheter was placed however not much urine drained. Because of this and again using shared medical decision making the patient was sent for CAT scan of the abdomen pelvis. This was concerning for bladder distention. The Myers catheter then began to drain urine after being repositioned. The patient was started on IV Rocephin for antibiotics. I recommended that the patient be discharged home to the care of hospice however the family would like her admitted. I therefore discussed the case with the hospitalist service who agreed to admit the patient. Impression & Plan Acute UTI, Acute urinary retention Discharge Plan Visit Data *Final* Discharge Date/Time: 03/13/19 16:18 Chief Complaint: Abdominal Pain ED Provider: Ghanshyam Suarez Discharge Problem: Acute UTI, Acute urinary retention Patient Disposition: Admitted As Inpatient Discharge Instructions Interventions: ED Discharge Assessment Last Done: 03/13/19 16:18 The scribe's documentation has been prepared under my direction and personally reviewed by me in its entirety. I confirm that the note above accurately reflects all work, treatment, procedures, and medical decision making performed by me.
--- NOTE | 2019-03-14 20:02 | Discharge Summary ---
Date of Service March 14, 2019 Admission HPI Per Admitting Provider 83 y/o F c/o urinary retention and abd pain. Pt has felt generally unwell with nausea and diarrhea the last two days. She has not taken her medications today or yesterday due to this. She was urinating yesterday without issue, however this AM she noted that she had suprapubic pain radiating to her back and was unable to urinate. They came to the ED for eval for this. Pt denies fever, SOB, chest pain, LE pain or swelling. Myers was placed in the ED and pt was given ceftriaxone for possible UTI. She no longer has abd pain. ED was planning for d/c to home with PO abx, however pt's family contacted hospice who recommended she be kept for overnight observation in the hospital. Both ED physician and CM discussed obs status with pt and family and they are in agreement with this plan. I also discussed this plan. Principal Diagnosis pelvic pain - UTI/retention/?both as cause Discharge Exam General she is awake and alert pleasant no distress. HEENT normocephalic atraumatic mucous members moist. Breathing unlabored no accessory muscle use good effort. Skin shows no rashes no pallor or icterus. Discharge Data Allergies Allergy/AdvReac Type Severity Reaction Status Date / Time amoxicillin Allergy Severe hives Verified 03/13/19 11:18 clavulanic acid Allergy Severe hives Verified 03/13/19 11:18 Penicillins Allergy Unknown HIVES Verified 03/13/19 11:18 methimazole AdvReac Unknown SEVERE Unverified 03/13/19 11:18 NAUSEA tramadol AdvReac Unknown NAUSEA Unverified 03/13/19 11:18 Consultations 03/13/19 14:20 ED Decision to Admit Stat 03/13/19 17:17 Consult Case Management - Discharge Planning Routine Ordered Studies 03/13/19 11:44 CT abd pelvis IV con only Stat Hospital Course (1) UTI (urinary tract infection): Presented with pain, seeming to be related either to infection or urinary retention. Improved quickly. Finish out a course of antibiotics, also continue Meyrs drainage. Stable for discharge with ongoing outpatient hospice. (2) Chronic systolic heart failure: continue home meds (3) Hypothyroidism: continue home meds (4) HTN (hypertension): continue home meds (5) Heart disease: s/p stents x5 yrs 81mg aspirin (6) Diabetes: Outpatient follow-up. (7) Lung mass: with mets CTAP noted for new mets currently on hospice dexamethasone QD is for pain related to cancer (8) DVT prophylaxis: SCDs Total Time Total Time Spent Total Time Spent (In Minutes): <30 Discharge Plan Discharge Items Patient Disposition: Hospice - Home Reason For Visit: UTI,URINARY RETENTION Discharge Diagnosis: urinary tract infection Discharge Goals: Diagnostic testing and Therapeutic intervention Activity: Resume your previous activity Non-emergency contact: Primary Care Provider Call non-emergency contact if: you have any medication questions, your symptoms worsen and you have a fever Follow-up/Referrals: Zach Sagastume III, CRNP [Primary Care Provider] - Diet: Regular Addtl Provider Instructions: your symptoms appear to have improved quite well, and it is safe to let you go home -your urine culture is still pending - it sometimes takes a day or two to get final culture results (they have to wait on the bacteria to grow in the lab and then test it against different antibiotics) -- since you've improved on the ceftriaxone (rocephin) we'll discharge you to complete a course of antibiotics with cefdinir (omnicef) which is very similar. As we follow out the culture results, every now and then we'll see that we need to actually change antibiotics - if that's the case (which is unlikely) we'll call you to switch things -take the cefdinir twice a day for 6 days (12 total doses) to complete a 7 day course for the infection - your next dose should be this afternoon/evening -if you have recurrent/worse symptoms, please be evaluated - either at your primary care office if possible or the ER if they are unable to see you. Prescriptions: New cefdinir 300 mg capsule 300 mg PO BID 6 Days Qty: 12 RF: 0 Continued levothyroxine 100 mcg Tablet 100 mcg PO DAILY RF: 0 dexamethasone 1 mg Tablet 1 mg PO DAILY RF: 0 Culturelle 10 billion cell Capsule 1 cap PO DAILY RF: 0 fluoxetine 20 mg Capsule 20 mg PO DAILY RF: 0 carvedilol 3.125 mg tablet 3.125 mg PO BID RF: 0 furosemide 20 mg tablet 20 mg PO DAILY RF: 0 multivitamin Tablet 1 tab PO DAILY RF: 0 metformin 500 mg tablet 1,000 mg PO BIDM RF: 0 ondansetron HCl 8 mg Tablet 8 mg PO UD PRN (Reason: Nausea) RF: 0 cyanocobalamin (vitamin B-12) [Vitamin B-12] 1,000 mcg Tablet 1,000 mcg PO DAILY RF: 0 aspirin [Aspir-81] 81 mg Tablet,Delayed Release (Dr/Ec) 81 mg PO DAILY RF: 0 acetaminophen [Tylenol Extra Strength] 500 mg Tablet 1,000 mg PO UD PRN (Reason: Pain) RF: 0 Imodium Multi-Symptom Relief 2-125 mg Tablet 1 tab PO Q3H PRN (Reason: Diarrhea) RF: 0 lisinopril 2.5 mg tablet 2.5 mg PO HS RF: 0 docusate sodium [Colace] 100 mg capsule 100 mg PO BID Qty: 60 RF: 0 Stand-Alone Forms: [facility] Discharge Orders: Discharge Order (Routine); Ordered 03/14/19 Ordered By: Jn Ramirez Admission Data Admit Date/Time: 03/13/19 15:11 Attending Provider: Jn Ramirez Admit Provider: Edie Coreas Primary Care Provider: Zach Sagastume III Other Providers: Edie Coreas Service: Medical Other Interventions: Discharge Summary Assessment (RN) Last Done: 03/14/19 13:31 DC Date/Time DO NOT enter until pt leaves facility: 03/14/19 14:57
== END 2019-03-14 14:57 | disposition hospice, home (50) ==
LOC: 4E 10:53 → ED 10:53 → SUATTDRO 15:11 → 4E 16:18